=== PATIENT | male | born 1955 | race Caucasian/White ===

== ENCOUNTER 2017-01-11 23:18 | Inpatient (IN) | payer MEDICARE, MEDICAID ==
[~2017-01-11] VITALS: Ht 175.3 cm; Wt 77.3 kg
[~2017-01-11 23:18] MED LIST: ACET-2267 PO; ACET-93 PO; ACET325T38 PO; ASPI81TA57 PO; DIVA125C10 PO; DIVA125T2 PO; DIVA500T7 PO; ESCI10TA PO; ESCI10TA55 PO; GUAI10SY4 PO; LORA10TA76 PO; MELO-195 PO; MELO15TA39 PO; MIRT15TA6 PO; NF-TYLARTH PO; PANT20TA2 PO; PANT20TA3 PO; RISP2TAB PO; RISP3TAB3 PO; RSP2T1 PO; SIMV10TA PO; SIMV10TA3 PO; SIMV20TA3 PO; SIMV40TA PO; SIMV40TA4 PO; TERB250T42 PO; TRAM50TA2 PO
--- OUTSIDE RECORDS SUMMARY | 2017-01-11 23:23 | XMS REPORT ---
Author Author DIXIE Conteh [facility] Address Unknown Care Team Providers Care Crime Scene Photographer Name Role Phone DIXIE Conteh Unavailable PROBLEMS Unknown Problems ALLERGIES Substance Reaction Event Type Date Status penicillian Unknown Non Drug Allergy Apr, Active SOCIAL HISTORY No smoking Hx information available PLAN OF CARE VITAL SIGNS Blood pressure systolic 135 mmHg 2016-04-27 Blood pressure diastolic 85 mmHg 2016-04-27 MEDICATIONS Medication Instructions Dosage Frequency Start Date End Date Duration Status Divalproex Sodium 500 MG Active Protonix 20 MG Orally Once a day 2 tablets 24h Active Risperdal 2 MG Orally Once a day 1 tablet 24h Active Guaifenesin 200 MG/5ML Orally every 4 hrs 5 ml as needed 4h Active Zocor 10 MG Orally Once a day 1 tablet in the evening 24h Active Acetaminophen 500 MG Orally every 6 hrs 2 capsules as needed 6h Active Remeron 15 MG Orally Once a day 1 tablet at bedtime 24h Active Lexapro 10 MG Orally Once a day 1 tablet 24h Active RESULTS No Results PROCEDURES Procedure Date Ordered Related Diagnosis Body Site EXTRAC ERUPTED TOOTH/EXPOSED ROOT Apr 27, 2016 EXTRAC ERUPTED TOOTH/EXPOSED ROOT Apr 27, 2016 IMMUNIZATIONS No Known Immunizations
--- OUTSIDE RECORDS SUMMARY | 2017-01-11 23:24 | XMS REPORT | Continuity of Care Document ---
Author Author [facility] Organization [facility] Address Unknown Phone Unavailable Allergies Active Description Code Type Severity Reaction Onset Reported/Identified Relationship to Patient Clinical Status Yes Penicillins [id number] Drug Allergy Unknown N/A 06/17/2014 Medications Problems Date Dx Coded Attending Type Code Diagnosis Diagnosed By 06/20/2014 Ot 272.4 06/20/2014 Ot 305.1 06/20/2014 Ot 331.0 06/20/2014 Ot 412 06/20/2014 Ot 530.81 06/20/2014 Ot 599.0 06/20/2014 Ot 799.3 06/20/2014 Ot 272.4 06/20/2014 Ot 305.1 06/20/2014 Ot 331.0 06/20/2014 Ot 412 06/20/2014 Ot 530.81 06/20/2014 Ot 599.0 06/20/2014 Ot 799.3 06/21/2014 Ot 272.4 06/21/2014 Ot 305.1 06/21/2014 Ot 331.0 06/21/2014 Ot 412 06/21/2014 Ot 530.81 06/21/2014 Ot 599.0 06/21/2014 Ot 799.3 06/21/2014 Ot 272.4 06/21/2014 Ot 305.1 06/21/2014 Ot 331.0 06/21/2014 Ot 412 06/21/2014 Ot 530.81 06/21/2014 Ot 599.0 06/21/2014 Ot 799.3 06/21/2014 Ot 272.4 06/21/2014 Ot 305.1 06/21/2014 Ot 331.0 06/21/2014 Ot 412 06/21/2014 Ot 530.81 06/21/2014 Ot 599.0 06/21/2014 Ot 799.3 05/28/2015 NEAL FOWLER DO Ot B96.20 05/28/2015 NELA FOWLER DO Ot F32.9 05/28/2015 NEAL FOWLER DO Ot F41.9 05/28/2015 GELLENDER DONEAL Ot G93.89 05/28/2015 GELLENDER DO, NEAL Dukes Ot I69.920 05/28/2015 GELLENDER DONEAL Ot K21.9 05/28/2015 GELLENDER DO, NEAL Dukes Ot N17.9 05/28/2015 GELLENDER DONEAL Ot N39.0 05/28/2015 GELLENDER DO, NEAL Dukes Ot R56.9 05/28/2015 GELLENDER DO, NEAL Dukes Ot Z86.73 Procedures Results Encounters ACCT No. Visit Date/Time Discharge Status Pt. Type Provider Facility Loc./Unit Complaint [id number] 02/08/2014 11:23:41 02/08/2014 23: 59:59 CLS Outpatient JaleelJaziel [id number] 12/06/2013 10:35:04 12/06/2013 23: 59:59 CLS Outpatient Jaleel Jaziel [id number] 11/01/2013 15:07:23 11/01/2013 23: 59:59 CLS Outpatient Jaleel Jaziel [id number] 10/22/2013 16:32:14 10/22/2013 23: 59:59 CLS Outpatient Jaleel Jaziel [id number] 10/15/2013 16:35:33 10/15/2013 23: 59:59 CLS Outpatient Jaleel Jaziel [id number] 10/01/2013 13:49:47 10/01/2013 23: 59:59 CLS Outpatient Kannan Macias [id number] 09/18/2013 11:18:27 09/18/2013 23: 59:59 CLS Outpatient TyJaziel snider [id number] 05/24/2015 12:14:00 2015 13:47:00 DIS Inpatient NEAL FOWLER DO [facility] 4TH [id number] 01/11/2017 23:19:00 ACT Emergency ELIOT AYAKA FREEMAN K [facility] ER FEVER [id number] 06/18/2014 13:29:00 Document Registration
--- OUTSIDE RECORDS SUMMARY | 2017-01-11 23:24 | XMS REPORT ---
Author Author DIXIE Conteh Organization [facility] Address Unknown Care Team Providers Care Prison Psychiatrist Name Role Phone yueMariah DIXIE Unavailable PROBLEMS Unknown Problems ALLERGIES Substance Reaction Event Type Date Status penicillian Unknown Non Drug Allergy Mar, Active SOCIAL HISTORY No smoking Hx information available PLAN OF CARE Activity Details Follow Up 1 Week Reason:te VITAL SIGNS Blood pressure systolic 125 mmHg 2016-04-14 Blood pressure diastolic 80 mmHg 2016-04-14 MEDICATIONS Medication Instructions Dosage Frequency Start Date End Date Duration Status Zocor 10 MG Orally Once a day 1 tablet in the evening 24h Active Risperdal 2 MG Orally Once a day 1 tablet 24h Active Protonix 20 MG Orally Once a day 2 tablets 24h Active Divalproex Sodium 500 MG Active Acetaminophen 500 MG Orally every 6 hrs 2 capsules as needed 6h Active Guaifenesin 200 MG/5ML Orally every 4 hrs 5 ml as needed 4h Active Lexapro 10 MG Orally Once a day 1 tablet 24h Active Remeron 15 MG Orally Once a day 1 tablet at bedtime 24h Active Clindamycin HCl 150 MG Orally three times 1 capsule Mar,Mar 7 days Active RESULTS No Results PROCEDURES Procedure Date Ordered Related Diagnosis Body Site LTD ORAL EVALUATION - PROBLEM FOCUS Apr 14, 2016 INTRAORL-PERIAPICAL 1 FILM [id number] Apr 14, 2016 IMMUNIZATIONS No Known Immunizations
[2017-01-11] MEDS ORDERED: NS IV 1000 ML 1,000 ML IV ONE (23:25)
[2017-01-11 23:38] LABS: BASOPHILS % (AUTO) 0 % (0-10); EOSINOPHILS # (AUTO) 0.1 10^3/uL (0.0-0.3); EOSINOPHILS % (AUTO) 1 % (0-10); LYMPHOCYTES # (AUTO) 1.3 X 10^3 (1.0-4.0); LYMPHOCYTES % (AUTO) 23 % (12-44); MEAN CORPUSCULAR HEMOGLOBIN 29 PG (25-34); MEAN CORPUSCULAR HGB CONC 32 G/DL (32-36); MEAN CORPUSCULAR VOLUME 93 FL (80-99); MEAN PLATELET VOLUME 10.7 FL (7.4-10.4); MONOCYTES # (AUTO) 0.6 X 10^3 (0.0-1.0); MONOCYTES % (AUTO) 11 % (0-12); NEUTROPHILS # (AUTO) 3.6 X 10^3 (1.8-7.8); NEUTROPHILS % (AUTO) 64 % (42-75); PLATELET COUNT 193 10^3/uL (130-400); RED BLOOD COUNT 3.13 10^6/uL (4.35-5.85); RED CELL DISTRIBUTION WIDTH 14.2 % (10.0-14.5); WHITE BLOOD COUNT 5.6 10^3/uL (4.3-11.0)
[2017-01-11 23:49] LABS: INR 1.1 (0.8-1.4); PROTHROMBIN TIME PATIENT 14.5 SEC (12.2-14.7)
--- NOTE | 2017-01-11 23:59 | ED General ---
General Chief Complaint: Fever-Adult/Adol Stated Complaint: FEVER Nursing Triage Note: PT ARRIVED TO ED BY [facility] FROM [facility]. PT IS UNABLE TO COMMUNICATE. EMS STATES THAT THEY WERE CALLED DUE TO PT HAVING A FEVER AND OXYGEN BEING LOW. Nursing Sepsis Screen: No Definite Risk Source of Information: EMS, Senior Living Records, Other (ALL PMH IS FROM OLD RECORDS AND [facility] RECORDS) Exam Limitations: Other (PT IS NON-VERBAL) History of Present Illness Time Seen by Provider: 23:25 Initial Comments PT ARRIVES VIA EMS FROM [facility]--NO REPORT FROM [facility] STAFF EMS STATE THEY WERE CALLED FOR PT WITH UNSPECIFIED FEVER AND LOW O2 SAT OF 72% ON ROOM AIR [facility] STAFF PLACED PT ON O2 AT 3 L/NC AND O2 SAT UP TO 97% WHEN EMS ARRIVED AT THE SCENE, PT HAD O2 SAT OF 97% ON ROOM AIR NO OTHER INFORMATION IS OBTAINABLE, PT IS NON-VERBAL AND HAS DEMENTIA ON ARRIVAL HERE, PT IS 98% ON ROOM AIR TEMP IS 98.0 ON ARRIVAL PT IS HYPOTENSIVE PCP: DR. FOWLER Allergies and Home Medications Allergies Coded Allergies: Penicillins (Verified Allergy, Unknown, 06/17/14) Home Medications Acetaminophen 500 Mg Tablet, 500 MG PO QID PRN for PAIN OR FEVER, (Reported) Divalproex Sodium 500 Mg Tablet., 500 MG PO BID, #60 Prescribed by: LEE ANTUNEZ on 05/28/15 1050 Escitalopram Oxalate 10 Mg Tablet, 10 MG PO HS, (Reported) Guaifenesin/Dextromethorphan 10 Ml Liqd, 10 ML PO Q6H PRN for COUGH, (Reported) Meloxicam 15 Mg Tablet, 15 MG PO DAILY @ 1700, (Reported) Mirtazapine 15 Mg Tablet, 15 MG PO HS, (Reported) Pantoprazole Sodium 20 Mg Tablet., 20 MG PO DAILY, (Reported) Risperidone 3 Mg Tablet, 3 MG PO BID, (Reported) Simvastatin 10 Mg Tablet, 10 MG PO HS, (Reported) Tramadol HCl 50 Mg Tablet, 50 MG PO TID PRN for PAIN, (Reported) Constitutional: other (UNABLE TO OBTAIN) Past Crdznes-Mektdq-Dmdacf Hx Patient Social History Smoking Status: Unknown if Ever Smoked 2nd Hand Smoke Exposure: No Recent Foreign Travel: No Contact w/Someone Who Travel: No Recent Infectious Disease Expo: No Recent Hopitalizations: No Physical Abuse: No Sexual Abuse: No Immunizations Up To Date Date of Influenza Vaccine: Feb 23, 2015 Seasonal Allergies Seasonal Allergies: No Surgeries History of Surgeries: No (UNKNOWN) Respiratory History of Respiratory Disorde: Yes ( pneumonia May 2014) Respiratory Disorders: Pneumonia Cardiovascular History of Cardiac Disorders: Yes Cardiac Disorders: Heart Attack, High Cholesterol Neurological History of Neurological Disord: Yes (ALZHEIMERS) Neurological Disorders: Dementia, Stroke Reproductive System Hx Reproductive Disorders: No Sexually Transmitted Disease: No Genitourinary History of Genitourinary Disor: Yes (INCONTINENT OF URINE--WEARS ADULT DIAPERS) Genitourinary Disorders: UTI-Chronic Gastrointestinal History of Gastrointestinal Di: Yes Gastrointestinal Disorders: Gastroesophageal Reflux Musculoskeletal History of Musculoskeletal Dis: Yes (ARTHOPHATHY; GENERALIZED WEAKNESS, IMPAIRED MOBILITY) Musculoskeletal Disorders: Arthritis, Spasms Endocrine History of Endocrine Disorders: No HEENT History of HEENT Disorders: Yes HEENT Disorders: Dysphagia Cancer History of Cancer: No Psychosocial History of Psychiatric Problem: Yes Behavioral Health Disorders: Anxiety, Depression Suicide Risk Score: 0 Integumentary History of Skin or Integumenta: No Blood Transfusions History of Blood Disorders: No Adverse Reaction to a Blood Tr: No Family Medical History Family Medial History: Unknown Physical Exam Vital Signs Vital Sign - Last 12Hours 01/11/17 01/11/17 23:18 23:50 Temp 98.0 Pulse 87 Resp 20 B/P (MAP) 90/68 Pulse Ox 98 O2 Delivery Room Air O2 Flow Rate 2.00 FiO2 97 Capillary Refill : Less Than 3 Seconds General Appearance: Other (PT LETHARGIC, LAYING WITH EYES CLOSED, MOUTH OPEN, DOES OPEN EYES WITH TACTILE STIMULATION BUT HAS A BLANK STARE AND DOES NOT ACKNOWLEDGE THAT ANYONE IS IN ROOM--STARES STRAIGHT AHEAD, AND DOES NOT TRACK) HEENT: PERRL/EOMI, Other (EDENTULOUS, DRIED FOOD ON LIPS AND GOVEA) Neck: Full Range of Motion Respiratory: Normal Breath Sounds, No Accessory Muscle Use, No Respiratory Distress Cardiovascular: Regular Rate, Rhythm, No Edema, No JVD, No Murmur Gastrointestinal: Normal Bowel Sounds, No Organomegaly, No Pulsatile Mass, Soft Extremity: No Pedal Edema Neurologic/Psychiatric: Other (MENTATION ABOVE; OCCASIONALLY WILL HAVE GENERALIZED TREMORS, ESPECIALLY OF ARMS) Skin: Normal Color, Warm/Dry Focused Exam Evaluation Lactate Level Laboratory Tests 01/11/17 23:41: Lactic Acid Level 1.15 Lactic Acid Level Progress/Results/Core Measures Results/Orders Lab Results Laboratory Tests Test 01/11/17 23:18 01/11/17 23:41 01/11/17 23:53 Range/Units White Blood Count 5.6 4.3-11.0 10^3/uL Red Blood Count 3.13 L 4.35-5.85 10^6/uL Hemoglobin 9.2 L 13.3-17.7 G/DL Hematocrit 29 L 40-54 % Mean Corpuscular Volume 93 80-99 FL Mean Corpuscular Hemoglobin 29 25-34 PG Mean Corpuscular Hemoglobin Concent 32 32-36 G/DL Red Cell Distribution Width 14.2 10.0-14.5 % Platelet Count 193 130-400 10^3/uL Mean Platelet Volume 10.7 H 7.4-10.4 FL Neutrophils (%) (Auto) 64 42-75 % Lymphocytes (%) (Auto) 23 12-44 % Monocytes (%) (Auto) 11 0-12 % Eosinophils (%) (Auto) 1 0-10 % Basophils (%) (Auto) 0 0-10 % Neutrophils # (Auto) 3.6 1.8-7.8 X 10^3 Lymphocytes # (Auto) 1.3 1.0-4.0 X 10^3 Monocytes # (Auto) 0.6 0.0-1.0 X 10^3 Eosinophils # (Auto) 0.1 0.0-0.3 10^3/uL Basophils # (Auto) 0.0 0.0-0.1 10^3/uL Prothrombin Time 14.5 12.2-14.7 SEC INR Comment 1.1 0.8-1.4 Activated Partial Thromboplast Time 30 24-35 SEC Sodium Level 144 135-145 MMOL/L Potassium Level 3.8 3.6-5.0 MMOL/L Chloride Level 109 H 98-107 MMOL/L Carbon Dioxide Level 24 21-32 MMOL/L Anion Gap 11 5-14 MMOL/L Blood Urea Nitrogen 35 H 7-18 MG/DL Creatinine 1.93 H 0.60-1.30 MG/DL Estimat Glomerular Filtration Rate 35 BUN/Creatinine Ratio 18 Glucose Level 95 70-105 MG/DL Calcium Level 9.0 8.5-10.1 MG/DL Magnesium Level 3.1 H 1.8-2.4 MG/DL Total Bilirubin 0.6 0.1-1.0 MG/DL Aspartate Amino Transf (AST/SGOT) 14 5-34 U/L Alanine Aminotransferase (ALT/SGPT) 20 0-55 U/L Alkaline Phosphatase 60 40-136 U/L Total Creatine Kinase 28 L 30-200 U/L Creatine Kinase MB 0.7 <6.6 NG/ML Troponin I < 0.30 <0.30 NG/ML Total Protein 7.7 6.4-8.2 GM/DL Albumin 3.7 3.2-4.5 GM/DL Valproic Acid (Depakene) Level 54.0 50.0-100.0 UG/ML Lactic Acid Level 1.15 0.50-2.00 MMOL/L Urine Color YELLOW Urine Clarity CLOUDY H Urine pH 5 5-9 Urine Specific [place] 1.015 L 1.016-1.022 Urine Protein 2+ H NEGATIVE Urine Glucose (UA) NEGATIVE NEGATIVE Urine Ketones NEGATIVE NEGATIVE Urine Nitrite POSITIVE H NEGATIVE Urine Bilirubin NEGATIVE NEGATIVE Urine Urobilinogen NORMAL NORMAL MG/DL Urine Leukocyte Esterase 3+ H NEGATIVE Urine RBC (Auto) 2+ H NEGATIVE Urine RBC 5-10 H /HPF Urine WBC 50-100 H /HPF Urine Squamous Epithelial Cells NONE /HPF Urine Crystals NONE /LPF Urine Bacteria LARGE H /HPF Urine Casts NONE /LPF Urine Mucus NEGATIVE /LPF Urine Culture Indicated YES My Orders Orders - AYAKA MCCABE DO Saline Lock/Iv-Start (01/11/17 23:25) Ekg Tracing (01/11/17 23:25) O2 (01/11/17 23:25) Monitor-Rhythm Ecg Trace Only (01/11/17 23:25) Basic Metabolic Panel (01/11/17 23:25) Cbc With Automated Diff (01/11/17 23:25) Comprehensive Metabolic Panel (01/11/17 23:25) Creatine Kinase (01/11/17 23:25) Creatine Kinase Mb (01/11/17 23:25) Lactic Acid Analyzer (01/11/17 23:25) Magnesium (01/11/17 23:25) Protime With Inr (01/11/17 23:25) Partial Thromboplastin Time (01/11/17 23:25) Troponin I (01/11/17 23:25) Ua Culture If Indicated (01/11/17 23:25) Blood Culture (01/11/17 23:25) Saline Lock/Iv-Start (01/11/17 23:25) Ns Iv 1000 Ml (Sodium Chloride 0.9%) (01/11/17 23:25) Catheter(Urinary) Insert & Ass 03,15 (01/11/17 23:44) Valproic Acid (01/11/17 23:47) Chest 1 View, Ap/Pa Only (01/12/17 00:01) Urine Culture (01/11/17 23:53) Ceftriaxone Injection (Rocephin Injectio (01/12/17 00:45) Saline Lock/Iv-Start (01/12/17 00:57) Ns Iv 1000 Ml (Sodium Chloride 0.9%) (01/12/17 00:57) Pantoprazole Injection (Protonix Injecti (01/12/17 02:30) Saline Lock/Iv-Start (01/12/17 03:35) Lactated Ringers (Lr 1000 Ml Iv Solution (01/12/17 03:35) Medications Given in ED Current Medications Medications Dose Ordered Sig/Juan Route Start Time Stop Time Status Last Admin Dose Admin Sodium Chloride 1,000 ml @ 0 mls/hr Q0M ONCE IV 01/11/17 23:25 01/11/17 23:28 DC 01/11/17 23:49 1,000 MLS/HR Vital Signs/I&O Vital Sign - Last 12Hours 01/11/17 01/11/17 01/12/17 23:18 23:50 04:20 Temp 98.0 98.0 Pulse 87 56 Resp 20 14 B/P (MAP) 90/68 Pulse Ox 98 97 100 O2 Delivery Room Air Nasal Cannula Room Air O2 Flow Rate 2.00 FiO2 97 Blood Pressure Mean: 75 Progress Note : Progress Note BP UP WITH FLUIDS, BUT CONTINUED TO GO UP AND DOWN DURING ER STAY--SYSTOLIC BP > 100 AT TIME OF ADMIT. O2 SAT 100% ON 2L/NC 0135--PT SLIGHTLY MORE ALERT, OPENS EYES SPONTANEOUSLY, AND DOES ANSWER "NO" WHEN ASKED IF HE WAS IN PAIN OR IF HE FELT SHORT OF BREATH 0215--PT NOW WILL TRACK A LITTLE WHEN I AM TALKING TO HIM. ASKED HIM IF HE WAS UNCOMFORTABLE AND HE SAID "YES" AND I ASKED HOW AND HE SAID "ACID" AND I ASKED IF HE HAD ACID REFLUX AND HE STATED "YES" --WILL GIVE DOSE OF PROTONIX ECG Initial ECG Impression Time: 23:37 Initial ECG Rate: 76 Initial ECG Rhythm: Normal Sinus Initial ECG Comparisson: No Previous ECG Available Diagnostic Imaging Comments CXR--POOR INSPIRATION, BIBASILAR ATELECTASIS, PENDING RADIOLOGIST REVIEW Reviewed: Reviewed by Me Departure Communication (PCP) 0035--SPOKE WITH DR. FOWLER, ACCEPTS PT FOR ADMIT. Impression Impression: Primary Impression: Urinary tract infection Additional Impressions: Hypotension Dehydration Altered mental status Dementia Disposition: ADMITTED INPATIENT Condition: Improved Admissions Decision to Admit Reason: Admit from ER (General) Decision to Admit/Date: Jan 12, 2017 Time/Decision to Admit Time: 00:35 Departure-Patient Inst. Referrals: NEAL FOWLER DO (PCP/Family) Primary Care Physician AYAKA MCCABE DO Jan 11, 2017 23:59
[2017-01-12 00:02] LABS: ALANINE AMINOTRANSFERASE 20 U/L (0-55); ALBUMIN 3.7 GM/DL (3.2-4.5); ANION GAP 11 MMOL/L (5-14); ASPARTATE AMINO TRANSFERASE 14 U/L (5-34); BILIRUBIN,TOTAL 0.6 MG/DL (0.1-1.0); BLOOD UREA NITROGEN 35 MG/DL (7-18); BUN/CREATININE RATIO 18; CARBON DIOXIDE 24 MMOL/L (21-32); CHLORIDE 109 MMOL/L (98-107); CREATINE KINASE 28 U/L (30-200); CREATININE SERUM 1.93 MG/DL (0.60-1.30); GFR ESTIMATED 35; GLUCOSE 95 MG/DL (70-105); MAGNESIUM 3.1 MG/DL (1.8-2.4); POTASSIUM 3.8 MMOL/L (3.6-5.0); SODIUM 144 MMOL/L (135-145); TOTAL PROTEIN 7.7 GM/DL (6.4-8.2)
[2017-01-12 00:10] LABS: BILIRUBIN,URINE NEGATIVE (NEGATIVE); KETONES,URINE NEGATIVE (NEGATIVE); LEUKOCYTE ESTERASE ,URINE 3+ (NEGATIVE); NITRITE,URINE POSITIVE (NEGATIVE); PH,URINE 5 (5-9); PROTEIN,URINE 2+ (NEGATIVE); UROBILINOGEN,URINE NORMAL (NORMAL)
[2017-01-12 00:12] LABS: TROPONIN I < 0.30 NG/ML (<0.30)
[2017-01-12 00:17] LABS: WBC,URINE 50-100 /HPF
[2017-01-12] MEDS ORDERED: cefTRIAXone INJECTION 1,000 MG in NS (IVPB) 50 ML IV ONE (00:45)
[2017-01-12] MEDS ORDERED: NS IV 1000 ML 1,000 ML IV ONE (00:57)
[2017-01-12] MEDS ORDERED: PANTOPRAZOLE 40 MG/10 ML (PROTONIX) VIAL IV ONE (02:30)
[2017-01-12] MEDS ORDERED: NS IV 1000 ML 1,000 ML ONE (03:30)
[2017-01-12] MEDS ORDERED: LACTATED RINGERS 1,000 ML IV ONE (03:35)
[2017-01-12 04:30] VITALS: BP 116/59
[2017-01-12] MEDS ORDERED: D5 1/2 NS 1000 ML IV SOLUTION 1,000 ML IV ONE (04:40)
[2017-01-12 05:00] VITALS: BP 94/52
[2017-01-12] MEDS: D5 1/2 NS 1000 ML IV SOLUTION 1,000 ML IV SCH ×2 (05:02→16:08)
[2017-01-12] MEDS ORDERED: ACETAMINOPHEN 650 MG SUPP (TYLENOL) PR PRN (05:30)
[2017-01-12 06:00] VITALS: BP 105/59
--- NOTE | 2017-01-12 07:13 | Diagnostic Imaging Report ---
INDICATION: Fever and shortness of air. TECHNIQUE: Single view chest 12:04 AM. CORRELATION STUDY: 05/24/2015 FINDINGS: Limited depth of inspiration. Given this, lung bobby demonstrate minimal basilar atelectasis. No definitive infiltrate. Heart size enlarged and mediastinum prominent. Vasculature within normal limits. IMPRESSION: 1. Likely bibasilar areas of atelectasis. No definitive infiltrate. Cardiac enlargement without failure. Dictated by: Dictated on workstation # [id number]
--- NOTE | 2017-01-12 07:32 | History & Physicial ---
History of Present Illness History of Present Illness Reason for visit/HPI patient resident of [facility]. Patient has dementia. Patient sent out to the emergency room due to having a pulse ox of 72, diaphoretic, elevated temperature, and unresponsive. Patient is nonverbal. Patient has UTI. Hypotension. Dehydration. Acute mental status change. Dementia Date of Admission Jan 12, 2017 at 00:35 Time Seen by Provider: 07:15 I consulted on this patient on 01/12/17 07:27 Attending Physician Jesus Manuel Zamorano DO Admitting Physician Jesus Manuel Zamorano DO Consult Allergies and Home Medications Allergies Coded Allergies: Penicillins (Verified Allergy, Unknown, 06/17/14) Home Medications Acetaminophen 500 Mg Tablet, 500 MG PO QID PRN for PAIN OR FEVER, (Reported) Divalproex Sodium 500 Mg Tablet.dr, 500 MG PO BID, #60 Prescribed by: LEE ANTUNEZ on 05/28/15 1050 Escitalopram Oxalate 10 Mg Tablet, 10 MG PO HS, (Reported) Guaifenesin/Dextromethorphan 10 Ml Liqd, 10 ML PO Q6H PRN for COUGH, (Reported) Meloxicam 15 Mg Tablet, 15 MG PO DAILY @ 1700, (Reported) Mirtazapine 15 Mg Tablet, 15 MG PO HS, (Reported) Pantoprazole Sodium 20 Mg Tablet.dr, 20 MG PO DAILY, (Reported) Risperidone 3 Mg Tablet, 3 MG PO BID, (Reported) Simvastatin 10 Mg Tablet, 10 MG PO HS, (Reported) Tramadol HCl 50 Mg Tablet, 50 MG PO TID PRN for PAIN, (Reported) Past Cqctprh-Zobtce-Awqzna Hx Patient Social History Employed/Student: unemployed Alcohol Use: Denies Use Recreational Drug Use: No Smoking Status: Unknown if Ever Smoked 2nd Hand Smoke Exposure: No Physical Abuse Screen: No Sexual Abuse: No Recent Foreign Travel: No Contact w/other who traveled: No Recent Hopitalizations: No Recent Infectious Disease Expo: No Immunizations Up To Date Date of Pneumonia Vaccine: Mar 23, 2016 Date of Influenza Vaccine: Feb 23, 2015 Seasonal Allergies Seasonal Allergies: No Surgeries No (UNKNOWN) Respiratory Yes ( pneumonia May 2014) Currently Using CPAP: No Currently Using BIPAP: No Cardiovascular Yes Heart Attack, High Cholesterol Neurological Yes (ALZHEIMERS) Dementia, Stroke Reproductive System Hx Reproductive Disorders: No Sexually Transmitted Disease: No Genitourinary Yes (INCONTINENT OF URINE--WEARS ADULT DIAPERS) UTI-Chronic Gastrointestinal Yes Gastroesophageal Reflux Musculoskeletal Yes (ARTHOPHATHY; GENERALIZED WEAKNESS, IMPAIRED MOBILITY) Arthritis, Spasms Endocrine History of Endocrine Disorders: No HEENT History of HEENT Disorders: Yes HEENT Disorders: Dysphagia Cancer No Psychosocial History of Psychiatric Problem: Yes Behavioral Health Disorders: Anxiety, Depression Integumentary History of Skin or Integumenta: No Blood Transfusions History of Blood Disorders: No Adverse Reaction to a Blood Tr: No Family Medical History Family Hx: Unknown Constitutional: fever, weakness, other (dementia, nonverbal, hypotensive,) EENTM: no symptoms reported Respiratory: no symptoms reported Cardiovascular: no symptoms reported Gastrointestinal: no symptoms reported Genitourinary: no symptoms reported (dementia, hypotensive, nonverbal, altered mental status) Physical Exam Vital Signs Vital Sign - Last 12Hours 01/11/17 01/11/17 23:18 23:50 Temp 98.0 Pulse 87 Resp 20 B/P (MAP) 90/68 Pulse Ox 98 O2 Delivery Room Air O2 Flow Rate 2.00 FiO2 97 Capillary Refill : Less Than 3 Seconds General Appearance: No Apparent Distress, WD/WN Eyes: Bilateral Eye Normal Inspection HEENT: Normal ENT Inspection Neck: Normal Inspection Respiratory: Normal Breath Sounds, No Accessory Muscle Use, No Respiratory Distress Cardiovascular: Regular Rate, Rhythm Gastrointestinal: Non Tender, Soft Assessment/Plan Assessment and Plan UTI. Hypotension. Dehydration. Acute mental status change. Dementia Problems: Clinical Quality Measures DVT/VTE Risk/Contraindication: Risk Factor Score Per Nursin RFS Level Per Nursing on Admit: 2=Moderate JESUS MANUEL ZAMORANO DO Jan 12, 2017 07:32
--- NOTE | 2017-01-12 07:39 | Pulmonary Consultation ---
History of Present Illness History of Present Illness Date of Consultation 01/12/17 07:33 Time Seen by Provider: 07:33 Date of Admission History of Present Illness 61yo with hx of dementia, nonverbal from [facility] presented to ED secondary to hypoxia, SOB, diaphoresis, fever, and becoming unresponsive.Unable to obtain ROS. Allergies and Home Medications Allergies Coded Allergies: Penicillins (Verified Allergy, Unknown, 06/17/14) Home Medications Acetaminophen 500 Mg Tablet, 500 MG PO Q6H PRN for PAIN-MILD, (Reported) Loperamide HCl 2 Mg Tablet, 2 MG PO UD PRN for DIARRHEA, (Reported) DO NOT EXCEED 6 TABLETS IN 24 HOURS Pantoprazole Sodium 20 Mg Tablet.dr, 20 MG PO DAILY, (Reported) Polyethylene Glycol 3350 17 Gm Powd.pack, 17 GM PO DAILY PRN for CONSTIPATION- 2ND LINE, (Reported) Simvastatin 10 Mg Tablet, 10 MG PO HS, (Reported) Sulfamethoxazole/Trimethoprim 1 Each Tablet, 1 EACH PO BID for 3 Days, #6 Prescribed by: SOFI LAM on 01/14/17 1137 Past Sxfyaiz-Ebkwst-Dvpzfr Hx Patient Social History Alcohol Use: Denies Use Recreational Drug Use: No Smoking Status: Unknown if Ever Smoked 2nd Hand Smoke Exposure: No Recent Foreign Travel: No Contact w/Someone Who Travel: No Recent Infectious Disease Expo: No Recent Hopitalizations: No Physical Abuse: No Sexual Abuse: No Immunizations Up To Date Date of Pneumonia Vaccine: Mar 23, 2016 Date of Influenza Vaccine: Feb 23, 2015 Seasonal Allergies Seasonal Allergies: No Surgeries History of Surgeries: No (UNKNOWN) Respiratory History of Respiratory Disorde: Yes ( pneumonia May 2014) Respiratory Disorders: Pneumonia Currently Using CPAP: No Currently Using BIPAP: No Cardiovascular History of Cardiac Disorders: Yes Cardiac Disorders: Heart Attack, High Cholesterol Neurological History of Neurological Disord: Yes (ALZHEIMERS) Neurological Disorders: Dementia, Stroke Reproductive System Hx Reproductive Disorders: No Sexually Transmitted Disease: No Genitourinary History of Genitourinary Disor: Yes (INCONTINENT OF URINE--WEARS ADULT DIAPERS) Genitourinary Disorders: UTI-Chronic Gastrointestinal History of Gastrointestinal Di: Yes Gastrointestinal Disorders: Gastroesophageal Reflux Musculoskeletal History of Musculoskeletal Dis: Yes (ARTHOPHATHY; GENERALIZED WEAKNESS, IMPAIRED MOBILITY) Musculoskeletal Disorders: Arthritis, Spasms Endocrine History of Endocrine Disorders: No HEENT History of HEENT Disorders: Yes HEENT Disorders: Dysphagia Cancer History of Cancer: No Psychosocial History of Psychiatric Problem: Yes Behavioral Health Disorders: Anxiety, Depression Suicide Risk Score: 0 Integumentary History of Skin or Integumenta: No Blood Transfusions History of Blood Disorders: No Adverse Reaction to a Blood Tr: No Family Medical History Family Medial History: Unknown Review of Systems Time Seen by Provider: 09:13 Exam Exam Vital Signs Date Time Temp Pulse Resp B/P (MAP) Pulse Ox O2 Delivery O2 Flow Rate FiO2 01/12/17 07:20 Nasal Cannula 2.00 01/12/17 05:02 56 01/12/17 04:32 100 Nasal Cannula 2.00 01/12/17 04:30 98.5 60 22 116/59 100 Nasal Cannula 2.00 01/12/17 04:20 98.0 56 14 100 Room Air 01/11/17 23:50 97 Nasal Cannula 2.00 97 01/11/17 23:18 98.0 87 20 90/68 98 Room Air General Appearance: No Apparent Distress, WD/WN HEENT: Normal ENT Inspection Neck: Normal Inspection Respiratory: Normal Breath Sounds, No Accessory Muscle Use, No Respiratory Distress Cardiovascular: Regular Rate, Rhythm Capillary Refill: Less Than 3 Seconds Extremity: No Pedal Edema Neurologic/Psychiatric: Other (MENTATION ABOVE; OCCASIONALLY WILL HAVE GENERALIZED TREMORS, ESPECIALLY OF ARMS) Skin: Normal Color, Warm/Dry Results Lab Laboratory Tests 01/11/17 23:18 Assessment/Plan Assessment/Plan Hypotension - resolved with IVF -IVF UTI -Continue Rocephin Chronic dementia Will transfer to 4th floor. 254 Clinical Quality Measures DVT/VTE Risk/Contraindication: Risk Factor Score Per Nursin RFS Level Per Nursing on Admit: 2=Moderate SANG OSORIO DO Jan 12, 2017 07:39
[2017-01-12 07:51] VITALS: BP 90/45
[2017-01-12] MEDS: ENOXAPARIN 40 MG/0.4 ML (LOVENOX) SYR SC SCH (08:50)
[2017-01-12 08:52] LABS: BASOPHILS % (AUTO) 0 % (0-10); EOSINOPHILS % (AUTO) 1 % (0-10); LYMPHOCYTES # (AUTO) 0.9 X 10^3 (1.0-4.0); LYMPHOCYTES % (AUTO) 19 % (12-44); MEAN CORPUSCULAR HEMOGLOBIN 30 PG (25-34); MEAN CORPUSCULAR HGB CONC 31 G/DL (32-36); MEAN CORPUSCULAR VOLUME 96 FL (80-99); MEAN PLATELET VOLUME 10.2 FL (7.4-10.4); MONOCYTES # (AUTO) 0.4 X 10^3 (0.0-1.0); MONOCYTES % (AUTO) 10 % (0-12); NEUTROPHILS # (AUTO) 3.2 X 10^3 (1.8-7.8); NEUTROPHILS % (AUTO) 70 % (42-75); PLATELET COUNT 163 10^3/uL (130-400); RED BLOOD COUNT 2.75 10^6/uL (4.35-5.85); RED CELL DISTRIBUTION WIDTH 14.1 % (10.0-14.5); WHITE BLOOD COUNT 4.5 10^3/uL (4.3-11.0)
[2017-01-12 09:01] LABS: CALCIUM 8.1 MG/DL (8.5-10.1); CREATININE SERUM 1.62 MG/DL (0.60-1.30); POTASSIUM 3.6 MMOL/L (3.6-5.0)
[2017-01-12] MEDS ORDERED: RISP2TAB3 PO (09:06)
[2017-01-12] MEDS ORDERED: DIPH25TA65 PO (09:06)
[2017-01-12] MEDS ORDERED: LOPE-134 PO (09:06)
[2017-01-12] MEDS ORDERED: DIVA500T PO (09:06)
[2017-01-12] MEDS ORDERED: MIRT30TA6 PO (09:06)
[2017-01-12] MEDS ORDERED: POLY17PO6 PO (09:06)
[2017-01-12 16:52] VITALS: BP 117/65
[2017-01-12 20:00] VITALS: BP 133/62
[2017-01-12] MEDS ORDERED: DIVALPROEX 500 MG DELAYED RELEASE (DEPAKOTE) TAB PO SCH (21:00)
[2017-01-12] MEDS: cefTRIAXone 1 GM/NS 50 ML IVPB IV SCH ×2 (22:02)
[2017-01-13] VITALS (10 sets, daily range): BP systolic 98–149; BP diastolic 56–88
[2017-01-13] MEDS: D5 1/2 NS 1000 ML IV SOLUTION 1,000 ML IV SCH (02:47)
[2017-01-13 05:57] LABS: BASOPHILS % (AUTO) 0 % (0-10); EOSINOPHILS # (AUTO) 0.1 10^3/uL (0.0-0.3); EOSINOPHILS % (AUTO) 2 % (0-10); LYMPHOCYTES # (AUTO) 1.2 X 10^3 (1.0-4.0); LYMPHOCYTES % (AUTO) 26 % (12-44); MEAN CORPUSCULAR HEMOGLOBIN 29 PG (25-34); MEAN CORPUSCULAR HGB CONC 31 G/DL (32-36); MEAN CORPUSCULAR VOLUME 94 FL (80-99); MEAN PLATELET VOLUME 10.4 FL (7.4-10.4); MONOCYTES # (AUTO) 0.5 X 10^3 (0.0-1.0); MONOCYTES % (AUTO) 12 % (0-12); NEUTROPHILS # (AUTO) 2.7 X 10^3 (1.8-7.8); NEUTROPHILS % (AUTO) 60 % (42-75); PLATELET COUNT 180 10^3/uL (130-400); RED BLOOD COUNT 2.45 10^6/uL (4.35-5.85); RED CELL DISTRIBUTION WIDTH 13.9 % (10.0-14.5); WHITE BLOOD COUNT 4.5 10^3/uL (4.3-11.0)
[2017-01-13] MEDS: ENOXAPARIN 40 MG/0.4 ML (LOVENOX) SYR SC SCH (06:20)
[2017-01-13 06:33] LABS: ALBUMIN 2.9 GM/DL (3.2-4.5); BILIRUBIN,TOTAL 0.4 MG/DL (0.1-1.0); CALCIUM 7.8 MG/DL (8.5-10.1); CREATININE SERUM 1.37 MG/DL (0.60-1.30); POTASSIUM 3.5 MMOL/L (3.6-5.0); TOTAL PROTEIN 5.9 GM/DL (6.4-8.2)
--- NOTE | 2017-01-13 06:59 | Pulmonary Progress Note ---
Subjective Time Seen by Provider: :17 Exam Exam Vital Signs Date Time Temp Pulse Resp B/P (MAP) Pulse Ox O2 Delivery O2 Flow Rate FiO2 01/13/17 04:00 98.2 55 17 120/66 91 Room Air 01/13/17 01:00 60 01/13/17 00:00 98.6 72 19 112/62 97 Room Air 01/12/17 20:15 97 Nasal Cannula 2.00 97 01/12/17 20:00 98.8 61 20 133/62 100 Nasal Cannula 2.00 01/12/17 19:00 76 01/12/17 16:52 97.5 56 20 117/65 99 Nasal Cannula 2.00 01/12/17 13:19 50 01/12/17 09:25 99 Nasal Cannula 2.00 97 01/12/17 07:57 99 Nasal Cannula 2.00 01/12/17 07:51 97.3 52 20 90/45 99 Nasal Cannula 2.00 01/12/17 07:51 99 Nasal Cannula 2.00 01/12/17 07:20 Nasal Cannula 2.00 01/12/17 07:00 53 General Appearance: No Apparent Distress, WD/WN HEENT: Normal ENT Inspection Neck: Normal Inspection Respiratory: Normal Breath Sounds, No Accessory Muscle Use, No Respiratory Distress Cardiovascular: Regular Rate, Rhythm Capillary Refill: Less Than 3 Seconds Extremity: No Pedal Edema Neurologic/Psychiatric: Other (MENTATION ABOVE; OCCASIONALLY WILL HAVE GENERALIZED TREMORS, ESPECIALLY OF ARMS) Skin: Normal Color, Warm/Dry Results Lab Laboratory Tests 01/11/17 23:18 01/12/17 08:40 01/13/17 05:22 Assessment/Plan Assessment/Plan UTI -Continue Rocephin Chronic dementia -- nonverbal Atelectasis -pt is only requiring RA NO pulmonary complications noted. I am going to sign off. please let me know if you have any questions or concerns. 232 Clinical Quality Measures DVT/VTE Risk/Contraindication: Risk Factor Score Per Nursin RFS Level Per Nursing on Admit: 2=Moderate SANG OSORIO DO Jan 13, 2017 06:59
--- NOTE | 2017-01-13 08:08 | Progress Note (SOAP) ---
Subjective Time Seen by Provider: 08:05 Subjective/Events-last exam patient looking better today. Patient opens his eyes. GFR 53 better. Potassium 3.5 . Hemoglobin 7.3. UTI Hypotension. Dehydration. Renal insufficiency. Dementia. Objective Exam Vital Signs Date Time Temp Pulse Resp B/P (MAP) Pulse Ox O2 Delivery O2 Flow Rate FiO2 01/13/17 04:00 98.2 55 17 120/66 91 Room Air 01/13/17 01:00 60 01/13/17 00:00 98.6 72 19 112/62 97 Room Air 01/12/17 20:15 97 Nasal Cannula 2.00 97 01/12/17 20:00 98.8 61 20 133/62 100 Nasal Cannula 2.00 01/12/17 19:00 76 01/12/17 16:52 97.5 56 20 117/65 99 Nasal Cannula 2.00 01/12/17 13:19 50 01/12/17 09:25 99 Nasal Cannula 2.00 97 Capillary Refill : Less Than 3 Seconds General Appearance: No Apparent Distress, WD/WN Results Lab Laboratory Tests 01/12/17 08:40 01/13/17 05:22 Laboratory Tests 01/12/17 08:40: White Blood Count 4.5, Red Blood Count 2.75L, Hemoglobin 8.1L, Hematocrit 26L, Mean Corpuscular Volume 96, Mean Corpuscular Hemoglobin 30, Mean Corpuscular Hemoglobin Concent 31L, Red Cell Distribution Width 14.1, Platelet Count 163, Mean Platelet Volume 10.2, Neutrophils (%) (Auto) 70, Lymphocytes (%) (Auto) 19 , Monocytes (%) (Auto) 10, Eosinophils (%) (Auto) 1, Basophils (%) (Auto) 0, Neutrophils # (Auto) 3.2, Lymphocytes # (Auto) 0.9L, Monocytes # (Auto) 0.4, Eosinophils # (Auto) 0.0, Basophils # (Auto) 0.0, Sodium Level 144, Potassium Level 3.6, Chloride Level 112H, Carbon Dioxide Level 24, Anion Gap 8, Blood Urea Nitrogen 27H, Creatinine 1.62H, Estimat Glomerular Filtration Rate 43, BUN/ Creatinine Ratio 17, Glucose Level 120H, Calcium Level 8.1L 01/13/17 05:22: White Blood Count 4.5, Red Blood Count 2.45L, Hemoglobin 7.2L, Hematocrit 23L, Mean Corpuscular Volume 94, Mean Corpuscular Hemoglobin 29, Mean Corpuscular Hemoglobin Concent 31L, Red Cell Distribution Width 13.9, Platelet Count 180, Mean Platelet Volume 10.4, Neutrophils (%) (Auto) 60, Lymphocytes (%) (Auto) 26 , Monocytes (%) (Auto) 12, Eosinophils (%) (Auto) 2, Basophils (%) (Auto) 0, Neutrophils # (Auto) 2.7, Lymphocytes # (Auto) 1.2, Monocytes # (Auto) 0.5, Eosinophils # (Auto) 0.1, Basophils # (Auto) 0.0, Sodium Level 138, Potassium Level 3.5L, Chloride Level 108H, Carbon Dioxide Level 22, Anion Gap 8, Blood Urea Nitrogen 20H, Creatinine 1.37H, Estimat Glomerular Filtration Rate 53, BUN/ Creatinine Ratio 15, Glucose Level 88, Calcium Level 7.8L, Total Bilirubin 0.4, Aspartate Amino Transf (AST/SGOT) 11, Alanine Aminotransferase (ALT/SGPT) 13, Alkaline Phosphatase 45, Total Protein 5.9L, Albumin 2.9L Microbiology 01/12/17 Blood Culture - Preliminary, Resulted No growth 01/11/17 Urine Culture - Preliminary, Resulted Gram Negative Isra Assessment/Plan Assessment/Plan Assess & Plan/Chief Complaint UTI. Hypotension. Dehydration. Anemia. Renal insufficiency. Dementia. Patient opening his eyes today Patient not hypoxic. Blood pressure better Clinical Quality Measures DVT/VTE Risk/Contraindication: Risk Factor Score Per Nursin RFS Level Per Nursing on Admit: 2=Moderate NEAL FOWLER DO Jan 13, 2017 08:08
[2017-01-13] MEDS ORDERED: NS IV 500 ML 500 ML IV SCH (08:14)
[2017-01-13] MEDS ORDERED: ACETAMINOPHEN 500 MG TAB (TYLENOL) PO PRN (08:15)
[2017-01-13] MEDS ORDERED: KCL 10 MEQ TAB (MICRO K) PO NR (08:15)
[2017-01-13] MEDS ORDERED: ACETAMINOPHEN 325 MG TABLET/CAPLET (TYLENOL) PO ONE (08:15)
[2017-01-13] MEDS ORDERED: POLYETHYLENE GLYCOL 17 GM (MIRALAX) PACK PO PRN (08:15)
[2017-01-13] MEDS ORDERED: diphenhydrAMINE 25 MG TAB (BENADRYL) PO ONE (08:15)
[2017-01-13] MEDS: PANTOPRAZOLE 20 MG TABLET (PROTONIX) PO SCH (09:55)
[2017-01-13] MEDS: DIVALPROEX 500 MG DELAYED RELEASE (DEPAKOTE) TAB PO SCH ×2 (09:55→21:07)
[2017-01-13] MEDS: risperiDONE 2 MG (RisperDAL) TAB PO SCH ×2 (09:55→21:07)
[2017-01-13 12:17] LABS: BILIRUBIN,URINE NEGATIVE (NEGATIVE); KETONES,URINE NEGATIVE (NEGATIVE); LEUKOCYTE ESTERASE ,URINE 3+ (NEGATIVE); NITRITE,URINE NEGATIVE (NEGATIVE); PH,URINE 6.5 (5-9); PROTEIN,URINE 2+ (NEGATIVE); UROBILINOGEN,URINE NORMAL (NORMAL)
[2017-01-13 12:27] LABS: WBC,URINE 25-50 /HPF
[2017-01-13] MEDS ORDERED: SIMvastatin 10 MG (ZOCOR) TAB PO SCH (21:00)
[2017-01-13] MEDS: cefTRIAXone 1 GM/NS 50 ML IVPB IV SCH ×2 (21:07)
[2017-01-14 02:00] VITALS: BP 137/74
[2017-01-14] MEDS: D5 1/2 NS 1000 ML IV SOLUTION 1,000 ML IV SCH (03:35)
[2017-01-14 06:46] LABS: MEAN PLATELET VOLUME 10.9 FL (7.4-10.4); RED BLOOD COUNT 3.29 10^6/uL (4.35-5.85); RED CELL DISTRIBUTION WIDTH 14.1 % (10.0-14.5); WHITE BLOOD COUNT 4.5 10^3/uL (4.3-11.0)
[2017-01-14 07:01] LABS: CALCIUM 8.3 MG/DL (8.5-10.1); CREATININE SERUM 1.39 MG/DL (0.60-1.30); POTASSIUM 3.5 MMOL/L (3.6-5.0)
--- NOTE | 2017-01-14 07:51 | Progress Note (SOAP) ---
Subjective Time Seen by Provider: 07:45 Subjective/Events-last exam patient lethargic this morning. Hemoglobin and hematocrit stable. UTI due to Escherichia coli. Dementia. Patient not hypoxic. Patient does not have any hypotension. Patient not dehydrated.. Renal insufficiency better. Patient doing much better. Would like to discharge patient today Objective Exam Vital Signs Date Time Temp Pulse Resp B/P (MAP) Pulse Ox O2 Delivery O2 Flow Rate FiO2 01/14/17 02:00 98.1 67 22 137/74 96 Room Air 01/14/17 00:52 62 01/13/17 21:00 Room Air 01/13/17 19:49 85 01/13/17 16:53 97.3 58 22 149/88 97 Room Air 01/13/17 15:57 97.1 52 16 127/60 97 Room Air 01/13/17 13:52 97.5 59 13 101/60 100 Room Air 01/13/17 13:45 97.7 54 13 98/57 100 01/13/17 13:37 97.8 50 13 102/59 99 Room Air 01/13/17 13:32 97.7 54 16 121/56 98 Room Air 01/13/17 13:30 48 01/13/17 13:15 97.5 56 16 118/64 97 01/13/17 08:20 Nasal Cannula 2.00 01/13/17 08:00 97.3 52 22 99/70 92 Room Air Capillary Refill : Less Than 3 Seconds General Appearance: No Apparent Distress, WD/WN, Other (lethargic) HEENT: Normal ENT Inspection Neck: Normal Inspection Respiratory: Lungs Clear, No Accessory Muscle Use, No Respiratory Distress Cardiovascular: Regular Rate, Rhythm, No Murmur Gastrointestinal: non tender, soft Results Lab Laboratory Tests 01/14/17 05:29 Laboratory Tests 01/13/17 10:05: Urine Color YELLOW, Urine Clarity SLIGHTLY CLOUDY, Urine pH 6.5, Urine Specific [place] 1.010L, Urine Protein 2+H, Urine Glucose (UA) NEGATIVE, Urine Ketones NEGATIVE, Urine Nitrite NEGATIVE, Urine Bilirubin NEGATIVE, Urine Urobilinogen NORMAL, Urine Leukocyte Esterase 3+H, Urine RBC (Auto) 4+H, Urine RBC 25-50H, Urine WBC 25-50H, Urine Crystals NONE, Urine Bacteria TRACE, Urine Casts NONE, Urine Mucus NEGATIVE, Urine Culture Indicated YES 01/14/17 05:29: White Blood Count 4.5, Red Blood Count 3.29L, Hemoglobin 9.5#L, Hematocrit 30L, Mean Corpuscular Volume 92, Mean Corpuscular Hemoglobin 29, Mean Corpuscular Hemoglobin Concent 32, Red Cell Distribution Width 14.1, Platelet Count 182, Mean Platelet Volume 10.9H, Sodium Level 139, Potassium Level 3.5L, Chloride Level 108H, Carbon Dioxide Level 23, Anion Gap 8, Blood Urea Nitrogen 14, Creatinine 1.39H, Estimat Glomerular Filtration Rate 52, BUN/Creatinine Ratio 10 , Glucose Level 81, Calcium Level 8.3L Microbiology 01/12/17 Blood Culture - Preliminary, Resulted No growth 01/11/17 Urine Culture - Final, Complete Escherichia Coli Radiology NAME: DARREN LOPEZ [facility] REC#: [id number] PT STATUS: ADM IN : 1955 PHYSICIAN: AYAKA MCCABE DO ADMIT DATE: 01/12/17 Signed Date of Exam: 01/12/17 CHEST 1 VIEW, AP/PA ONLY INDICATION: Fever and shortness of air. TECHNIQUE: Single view chest 12:04 AM. CORRELATION STUDY: 05/24/2015 FINDINGS: Limited depth of inspiration. Given this, lung bobby demonstrate minimal basilar atelectasis. No definitive infiltrate. Heart size enlarged and mediastinum prominent. Vasculature within normal limits. IMPRESSION: 1. Likely bibasilar areas of atelectasis. No definitive infiltrate. Cardiac enlargement without failure. Dictated by: Dictated on workstation # [id number] Dict: 01/12/17 0708 Trans: 01/12/17 1154 Interpreted by: CRISTEL SALINAS DO Electronically signed by: CRISTEL SALINAS DO 01/12/17 1154 Assessment/Plan Assessment/Plan Assess & Plan/Chief Complaint UTI. Hypotension. Dehydration. Anemia. Renal insufficiency. Dementia. Patient opening his eyes today Patient not hypoxic. Blood pressure better. . 01/14/17. UTI due to Escherichia coli. Hypotension resolved. Dehydration resolved. Renal insufficiency better. Dementia. Patient not hypoxia. Blood pressure better. Patient lethargic probably due to medication . With like to discharge today Clinical Quality Measures DVT/VTE Risk/Contraindication: Risk Factor Score Per Nursin RFS Level Per Nursing on Admit: 2=Moderate NEAL FOWLER DO Jan 14, 2017 07:51
--- NOTE | 2017-01-14 07:54 | Discharge Inst-Skilled Nursing ---
Discharge Inst-Skilled NF Patient Instructions Patient Problems: Septra double strength number 6 one twice a day Consult/Follow Up/Orders Follow Up Appt.: one week Skilled NF Admit to: [facility] Certification (SNF) I certify that SNF services are required to be given on an inpatient basis because of the above named patient's need for [facility] care on a continuing basis for the conditions(s) for which he/she was receiving inpatient hospital services prior to his/her transfer to the SNF. Discharge Diet: Other Diet (follow same diet at residential as previously) New & Resume Previous Orders Jesus Manuel Fowler Jan 14, 2017 07:54 JESUS MANUEL FOWLER DO Jan 14, 2017 07:54
[2017-01-14 08:22] VITALS: BP 114/72
[2017-01-14] MEDS: PANTOPRAZOLE 20 MG TABLET (PROTONIX) PO SCH (09:53)
[2017-01-14] MEDS ORDERED: SULF1TAB35 PO (11:37)
[2017-01-14 12:37] VITALS: BP 130/71
[2017-01-14] MEDS ORDERED: TRIM/SULFAMETH 160/800 (SEPTRA DS) TAB PO SCH (17:00)
--- NOTE | 2017-01-18 07:23 | Discharge Summary ---
Diagnosis/Chief Complaint Date of Admission Jan 12, 2017 at 00:35 Date of Discharge Jan 14, 2017 at 16:55 Discharge Date: Jan 14, 2017 Admission Diagnosis Admission Diagnosis UTI. Hypotension. Dehydration. Acute mental status change. Dementia Discharge Diagnosis hypoxemia. Unresponsive. Short of breath. Acute mental status change. UTI due to Escherichia coli. Dementia. Renal insufficiency. Anemia. Reason [facility] has [facility]. Patient sent out to the emergency room due to having a pulse ox of 72, diaphoretic, elevated temperature, and unresponsive. Patient is nonverbal. Patient has UTI. Hypotension. Dehydration. Acute mental status change. Dementia Discharge Summary Consultations pulmonary consult Discharge Physical Examination Allergies: Coded Allergies: Penicillins (Verified Allergy, Unknown, 06/17/14) Vitals & I&Os Vital Signs Date Time Temp Pulse Resp B/P (MAP) Pulse Ox O2 Delivery O2 Flow Rate FiO2 01/14/17 16:56 01/14/17 13:00 65 01/14/17 12:37 98.0 22 97 Room Air 01/13/17 08:20 2.00 01/12/17 20:15 97 Hospital Course patient in hospital did improve. Patient nonverbal area Patient transferred back to [facility] Labs (last 24 hrs) Laboratory Tests 01/11/17 23:18: White Blood Count 5.6, Red Blood Count 3.13L, Hemoglobin 9.2L, Hematocrit 29L, Mean Corpuscular Volume 93, Mean Corpuscular Hemoglobin 29, Mean Corpuscular Hemoglobin Concent 32, Red Cell Distribution Width 14.2, Platelet Count 193, Mean Platelet Volume 10.7H, Neutrophils (%) (Auto) 64, Lymphocytes (%) (Auto) 23 , Monocytes (%) (Auto) 11, Eosinophils (%) (Auto) 1, Basophils (%) (Auto) 0, Neutrophils # (Auto) 3.6, Lymphocytes # (Auto) 1.3, Monocytes # (Auto) 0.6, Eosinophils # (Auto) 0.1, Basophils # (Auto) 0.0, Prothrombin Time 14.5, INR Comment 1.1, Activated Partial Thromboplast Time 30, Sodium Level 144, Potassium Level 3.8, Chloride Level 109H, Carbon Dioxide Level 24, Anion Gap 11 , Blood Urea Nitrogen 35H, Creatinine 1.93H, Estimat Glomerular Filtration Rate 35, BUN/Creatinine Ratio 18, Glucose Level 95, Calcium Level 9.0, Magnesium Level 3.1H, Total Bilirubin 0.6, Aspartate Amino Transf (AST/SGOT) 14, Alanine Aminotransferase (ALT/SGPT) 20, Alkaline Phosphatase 60, Total Creatine Kinase 28L, Creatine Kinase MB 0.7, Troponin I < 0.30, Total Protein 7.7, Albumin 3.7, Valproic Acid (Depakene) Level 54.0 01/11/17 23:41: Lactic Acid Level 1.15 01/11/17 23:53: Urine Color YELLOW, Urine Clarity CLOUDYH, Urine pH 5, Urine Specific [place] 1.015L, Urine Protein 2+H, Urine Glucose (UA) NEGATIVE, Urine Ketones NEGATIVE, Urine Nitrite POSITIVEH, Urine Bilirubin NEGATIVE, Urine Urobilinogen NORMAL, Urine Leukocyte Esterase 3+H, Urine RBC (Auto) 2+H, Urine RBC 5-10H, Urine WBC 50-100H, Urine Squamous Epithelial Cells NONE, Urine Crystals NONE, Urine Bacteria LARGEH, Urine Casts NONE, Urine Mucus NEGATIVE, Urine Culture Indicated YES 01/12/17 08:40: White Blood Count 4.5, Red Blood Count 2.75L, Hemoglobin 8.1L, Hematocrit 26L, Mean Corpuscular Volume 96, Mean Corpuscular Hemoglobin 30, Mean Corpuscular Hemoglobin Concent 31L, Red Cell Distribution Width 14.1, Platelet Count 163, Mean Platelet Volume 10.2, Neutrophils (%) (Auto) 70, Lymphocytes (%) (Auto) 19 , Monocytes (%) (Auto) 10, Eosinophils (%) (Auto) 1, Basophils (%) (Auto) 0, Neutrophils # (Auto) 3.2, Lymphocytes # (Auto) 0.9L, Monocytes # (Auto) 0.4, Eosinophils # (Auto) 0.0, Basophils # (Auto) 0.0, Sodium Level 144, Potassium Level 3.6, Chloride Level 112H, Carbon Dioxide Level 24, Anion Gap 8, Blood Urea Nitrogen 27H, Creatinine 1.62H, Estimat Glomerular Filtration Rate 43, BUN/ Creatinine Ratio 17, Glucose Level 120H, Calcium Level 8.1L 01/13/17 05:22: White Blood Count 4.5, Red Blood Count 2.45L, Hemoglobin 7.2L, Hematocrit 23L, Mean Corpuscular Volume 94, Mean Corpuscular Hemoglobin 29, Mean Corpuscular Hemoglobin Concent 31L, Red Cell Distribution Width 13.9, Platelet Count 180, Mean Platelet Volume 10.4, Neutrophils (%) (Auto) 60, Lymphocytes (%) (Auto) 26 , Monocytes (%) (Auto) 12, Eosinophils (%) (Auto) 2, Basophils (%) (Auto) 0, Neutrophils # (Auto) 2.7, Lymphocytes # (Auto) 1.2, Monocytes # (Auto) 0.5, Eosinophils # (Auto) 0.1, Basophils # (Auto) 0.0, Sodium Level 138, Potassium Level 3.5L, Chloride Level 108H, Carbon Dioxide Level 22, Anion Gap 8, Blood Urea Nitrogen 20H, Creatinine 1.37H, Estimat Glomerular Filtration Rate 53, BUN/ Creatinine Ratio 15, Glucose Level 88, Calcium Level 7.8L, Total Bilirubin 0.4, Aspartate Amino Transf (AST/SGOT) 11, Alanine Aminotransferase (ALT/SGPT) 13, Alkaline Phosphatase 45, Total Protein 5.9L, Albumin 2.9L 01/13/17 10:05: Urine Color YELLOW, Urine Clarity SLIGHTLY CLOUDY, Urine pH 6.5, Urine Specific [place] 1.010L, Urine Protein 2+H, Urine Glucose (UA) NEGATIVE, Urine Ketones NEGATIVE, Urine Nitrite NEGATIVE, Urine Bilirubin NEGATIVE, Urine Urobilinogen NORMAL, Urine Leukocyte Esterase 3+H, Urine RBC (Auto) 4+H, Urine RBC 25-50H, Urine WBC 25-50H, Urine Crystals NONE, Urine Bacteria TRACE, Urine Casts NONE, Urine Mucus NEGATIVE, Urine Culture Indicated YES 01/14/17 05:29: White Blood Count 4.5, Red Blood Count 3.29L, Hemoglobin 9.5#L, Hematocrit 30L, Mean Corpuscular Volume 92, Mean Corpuscular Hemoglobin 29, Mean Corpuscular Hemoglobin Concent 32, Red Cell Distribution Width 14.1, Platelet Count 182, Mean Platelet Volume 10.9H, Sodium Level 139, Potassium Level 3.5L, Chloride Level 108H, Carbon Dioxide Level 23, Anion Gap 8, Blood Urea Nitrogen 14, Creatinine 1.39H, Estimat Glomerular Filtration Rate 52, BUN/Creatinine Ratio 10 , Glucose Level 81, Calcium Level 8.3L 01/14/17 12:05: Lab Scanned Report Transfusion Reaction Form Microbiology 01/12/17 Blood Culture - Final, Complete No growth 01/13/17 Urine Culture - Final, Complete Laboratory Tests 01/11/17 23:18 01/12/17 08:40 01/13/17 05:22 01/14/17 05:29 Pending Labs Microbiology Date/Time Source Procedure Growth Status 01/12/17 00:02 Peripheral Rt Ac Blood Culture - Final No growth Complete 01/11/17 23:41 Peripheral Lt Ac Blood Culture - Final Staph, Coag Neg ([employer]) Complete 01/13/17 10:05 Urine Clean Catch Urine Culture - Final Complete 01/11/17 23:53 Urine Clean Catch Urine Culture - Final Escherichia Coli Complete Laboratory Tests 01/11/17 23:18: White Blood Count 5.6, Red Blood Count 3.13, Hemoglobin 9.2, Hematocrit 29, Mean Corpuscular Volume 93, Mean Corpuscular Hemoglobin 29, Mean Corpuscular Hemoglobin Concent 32, Red Cell Distribution Width 14.2, Platelet Count 193, Mean Platelet Volume 10.7, Neutrophils (%) (Auto) 64, Lymphocytes (%) (Auto) 23 , Monocytes (%) (Auto) 11, Eosinophils (%) (Auto) 1, Basophils (%) (Auto) 0, Neutrophils # (Auto) 3.6, Lymphocytes # (Auto) 1.3, Monocytes # (Auto) 0.6, Eosinophils # (Auto) 0.1, Basophils # (Auto) 0.0, Prothrombin Time 14.5, INR Comment 1.1, Activated Partial Thromboplast Time 30, Sodium Level 144, Potassium Level 3.8, Chloride Level 109, Carbon Dioxide Level 24, Anion Gap 11, Blood Urea Nitrogen 35, Creatinine 1.93, Estimat Glomerular Filtration Rate 35, BUN/Creatinine Ratio 18, Glucose Level 95, Calcium Level 9.0, Magnesium Level 3.1, Total Bilirubin 0.6, Aspartate Amino Transf (AST/SGOT) 14, Alanine Aminotransferase (ALT/SGPT) 20, Alkaline Phosphatase 60, Total Creatine Kinase 28, Creatine Kinase MB 0.7, Troponin I < 0.30, Total Protein 7.7, Albumin 3.7, Valproic Acid (Depakene) Level 54.0 01/11/17 23:41: Lactic Acid Level 1.15 01/11/17 23:53: Urine Color YELLOW, Urine Clarity CLOUDY, Urine pH 5, Urine Specific [place] 1.015, Urine Protein 2+, Urine Glucose (UA) NEGATIVE, Urine Ketones NEGATIVE, Urine Nitrite POSITIVE, Urine Bilirubin NEGATIVE, Urine Urobilinogen NORMAL, Urine Leukocyte Esterase 3+, Urine RBC (Auto) 2+, Urine RBC 5-10, Urine WBC 50- 100, Urine Squamous Epithelial Cells NONE, Urine Crystals NONE, Urine Bacteria LARGE, Urine Casts NONE, Urine Mucus NEGATIVE, Urine Culture Indicated YES 01/12/17 08:40: White Blood Count 4.5, Red Blood Count 2.75, Hemoglobin 8.1, Hematocrit 26, Mean Corpuscular Volume 96, Mean Corpuscular Hemoglobin 30, Mean Corpuscular Hemoglobin Concent 31, Red Cell Distribution Width 14.1, Platelet Count 163, Mean Platelet Volume 10.2, Neutrophils (%) (Auto) 70, Lymphocytes (%) (Auto) 19 , Monocytes (%) (Auto) 10, Eosinophils (%) (Auto) 1, Basophils (%) (Auto) 0, Neutrophils # (Auto) 3.2, Lymphocytes # (Auto) 0.9, Monocytes # (Auto) 0.4, Eosinophils # (Auto) 0.0, Basophils # (Auto) 0.0, Sodium Level 144, Potassium Level 3.6, Chloride Level 112, Carbon Dioxide Level 24, Anion Gap 8, Blood Urea Nitrogen 27, Creatinine 1.62, Estimat Glomerular Filtration Rate 43, BUN/ Creatinine Ratio 17, Glucose Level 120, Calcium Level 8.1 01/13/17 05:22: White Blood Count 4.5, Red Blood Count 2.45, Hemoglobin 7.2, Hematocrit 23, Mean Corpuscular Volume 94, Mean Corpuscular Hemoglobin 29, Mean Corpuscular Hemoglobin Concent 31, Red Cell Distribution Width 13.9, Platelet Count 180, Mean Platelet Volume 10.4, Neutrophils (%) (Auto) 60, Lymphocytes (%) (Auto) 26 , Monocytes (%) (Auto) 12, Eosinophils (%) (Auto) 2, Basophils (%) (Auto) 0, Neutrophils # (Auto) 2.7, Lymphocytes # (Auto) 1.2, Monocytes # (Auto) 0.5, Eosinophils # (Auto) 0.1, Basophils # (Auto) 0.0, Sodium Level 138, Potassium Level 3.5, Chloride Level 108, Carbon Dioxide Level 22, Anion Gap 8, Blood Urea Nitrogen 20, Creatinine 1.37, Estimat Glomerular Filtration Rate 53, BUN/ Creatinine Ratio 15, Glucose Level 88, Calcium Level 7.8, Total Bilirubin 0.4, Aspartate Amino Transf (AST/SGOT) 11, Alanine Aminotransferase (ALT/SGPT) 13, Alkaline Phosphatase 45, Total Protein 5.9, Albumin 2.9 01/13/17 10:05: Urine Color YELLOW, Urine Clarity SLIGHTLY CLOUDY, Urine pH 6.5, Urine Specific [place] 1.010, Urine Protein 2+, Urine Glucose (UA) NEGATIVE, Urine Ketones NEGATIVE, Urine Nitrite NEGATIVE, Urine Bilirubin NEGATIVE, Urine Urobilinogen NORMAL, Urine Leukocyte Esterase 3+, Urine RBC (Auto) 4+, Urine RBC 25-50, Urine WBC 25-50, Urine Crystals NONE, Urine Bacteria TRACE, Urine Casts NONE, Urine Mucus NEGATIVE, Urine Culture Indicated YES 01/14/17 05:29: White Blood Count 4.5, Red Blood Count 3.29, Hemoglobin 9.5, Hematocrit 30, Mean Corpuscular Volume 92, Mean Corpuscular Hemoglobin 29, Mean Corpuscular Hemoglobin Concent 32, Red Cell Distribution Width 14.1, Platelet Count 182, Mean Platelet Volume 10.9, Sodium Level 139, Potassium Level 3.5, Chloride Level 108, Carbon Dioxide Level 23, Anion Gap 8, Blood Urea Nitrogen 14, Creatinine 1.39, Estimat Glomerular Filtration Rate 52, BUN/Creatinine Ratio 10 , Glucose Level 81, Calcium Level 8.3 01/14/17 12:05: Lab Scanned Report Transfusion Reaction Form Discharge Home Medications: Active Scripts Active Bactrim Ds Tablet (Sulfamethoxazole/Trimethoprim) 1 Each Tablet 1 Each PO BID 3 Days Reported Miralax (Polyethylene Glycol 3350) 17 Gm Powd.pack 17 Gm PO DAILY PRN Imodium A-D (Loperamide HCl) 2 Mg Tablet 2 Mg PO UD PRN DO NOT EXCEED 6 TABLETS IN 24 HOURS Simvastatin 10 Mg Tablet 10 Mg PO HS Tylenol Extra Strength (Acetaminophen) 500 Mg Tablet 500 Mg PO Q6H PRN Pantoprazole Sodium 20 Mg Tablet.dr 20 Mg PO DAILY Instructions to patient/family Please see electronic discharge instructions given to patient. Clinical Quality Measures DVT/VTE Risk/Contraindication: Risk Factor Score Per Nursin RFS Level Per Nursing on Admit: 2=Moderate NEAL FOWLER DO Jan 18, 2017 07:23
== END 2017-01-14 16:55 | DRG 690 ==
LOC: EDUNIT# 23:18 → ER 23:19 → ICU 01-12 00:35 → 4TH 01-12 09:25
PROVIDERS: ADMIT Family Medicine; ATTEND Family Medicine
DX: N39.0 Urinary tract infection, site not specified (principal); B96.20 Unspecified Escherichia coli [E. coli] as the cause of diseases classified elsewhere; J98.11 Atelectasis; I95.9 Hypotension, unspecified; E86.0 Dehydration; F03.90 Unspecified dementia, unspecified severity, without behavioral disturbance, psychotic disturbance, mood disturbance, and anxiety; E78.00 Pure hypercholesterolemia, unspecified; I25.2 Old myocardial infarction; F32.9 Major depressive disorder, single episode, unspecified; F41.9 Anxiety disorder, unspecified; K21.9 Gastro-esophageal reflux disease without esophagitis; N28.9 Disorder of kidney and ureter, unspecified; D64.9 Anemia, unspecified
CPT/HCPCS: 36415; 51702; 71010; 80048; 80053; 80164; 81000; 82550; 82553; 83605; 83735; 84484; 85025; 85027; 85610; 85730; 86850; 86900; 86901; 86920; 87040; 87077; 87088; 87186; 93005; 93041; 96361; 96365; 96375

== ENCOUNTER 2017-03-23 11:49 | Emergency (ER) | payer MEDICARE, MEDICAID ==
[~2017-03-23] VITALS: Ht 175.3 cm; Wt 77.3 kg
[~2017-03-23 11:49] MED LIST changes: +DIPH25TA65 PO; +DIVA500T PO; +LOPE-134 PO; +MIRT30TA6 PO; +POLY17PO6 PO; +RISP2TAB3 PO; +SULF1TAB35 PO
[2017-03-23 12:08] VITALS: BP 118/82
--- NOTE | 2017-03-23 12:28 | ED General ---
General Chief Complaint: Fever-Adult/Adol Stated Complaint: FEVER,CLOUDY URINE Source of Information: Group Home Records Exam Limitations: No Limitations History of Present Illness Time Seen by Provider: 12:27 Initial Comments Sent to ER from [facility] with reports of a fever and cloudy urine. Patient is nonverbal. Timing/Duration: 1-2 Days Severity: Moderate Allergies and Home Medications Allergies Coded Allergies: Penicillins (Verified Allergy, Unknown, 06/17/14) Home Medications Acetaminophen 500 Mg Tablet, 500 MG PO Q6H PRN for PAIN-MILD, (Reported) Levofloxacin 250 Mg Tablet, 250 MG PO DAILY for 10 Days Prescribed by: ARACELI MENDEZ on 03/23/17 1333 Loperamide HCl 2 Mg Tablet, 2 MG PO UD PRN for DIARRHEA, (Reported) DO NOT EXCEED 6 TABLETS IN 24 HOURS Pantoprazole Sodium 20 Mg Tablet.dr, 20 MG PO DAILY, (Reported) Polyethylene Glycol 3350 17 Gm Powd.pack, 17 GM PO DAILY PRN for CONSTIPATION- 2ND LINE, (Reported) Simvastatin 10 Mg Tablet, 10 MG PO HS, (Reported) Sulfamethoxazole/Trimethoprim 1 Each Tablet, 1 EACH PO BID for 3 Days, #6 Prescribed by: SOFI LAM on 01/14/17 1137 Constitutional: see HPI, fever EENTM: see HPI Respiratory: see HPI, cough Genitourinary: no symptoms reported Musculoskeletal: no symptoms reported Skin: no symptoms reported Psychiatric/Neurological: No Symptoms Reported Hematologic/Lymphatic: No Symptoms Reported Immunological/Allergic: no symptoms reported Past Iqoxadb-Dxinmj-Yckgqk Hx Patient Social History 2nd Hand Smoke Exposure: No Recent Foreign Travel: No Contact w/Someone Who Travel: No Recent Hopitalizations: No Immunizations Up To Date Date of Pneumonia Vaccine: Mar 23, 2016 Date of Influenza Vaccine: Feb 23, 2015 Seasonal Allergies Seasonal Allergies: No Surgeries History of Surgeries: No (UNKNOWN) Respiratory History of Respiratory Disorde: Yes ( pneumonia May 2014) Respiratory Disorders: Pneumonia Currently Using CPAP: No Currently Using BIPAP: No Cardiovascular History of Cardiac Disorders: Yes Cardiac Disorders: Heart Attack, High Cholesterol Neurological History of Neurological Disord: Yes (ALZHEIMERS) Neurological Disorders: Dementia, Stroke Reproductive System Hx Reproductive Disorders: No Sexually Transmitted Disease: No Genitourinary History of Genitourinary Disor: Yes (INCONTINENT OF URINE--WEARS ADULT DIAPERS) Genitourinary Disorders: UTI-Chronic Gastrointestinal History of Gastrointestinal Di: Yes Gastrointestinal Disorders: Gastroesophageal Reflux Musculoskeletal History of Musculoskeletal Dis: Yes (ARTHOPHATHY; GENERALIZED WEAKNESS, IMPAIRED MOBILITY) Musculoskeletal Disorders: Arthritis, Spasms Endocrine History of Endocrine Disorders: No HEENT History of HEENT Disorders: Yes HEENT Disorders: Dysphagia Cancer History of Cancer: No Psychosocial History of Psychiatric Problem: Yes Behavioral Health Disorders: Anxiety, Depression Integumentary History of Skin or Integumenta: No Blood Transfusions History of Blood Disorders: No Adverse Reaction to a Blood Tr: No Family Medical History Family Medial History: Unknown Physical Exam Vital Signs Vital Sign - Last 12Hours 03/23/17 12:08 Temp 99.8 Pulse 109 Resp 20 B/P (MAP) 118/82 Pulse Ox 98 O2 Delivery Room Air Capillary Refill : General Appearance: No Apparent Distress, WD/WN, Other (patient is nonverbal. Eyes are open. Does not assist with standing. Appears much older than stated age.) Eyes: Bilateral Eye Normal Inspection, Bilateral Eye PERRL, Bilateral Eye EOMI HEENT: PERRL/EOMI, TMs Normal Neck: Full Range of Motion, Normal Inspection Respiratory: Normal Breath Sounds, No Accessory Muscle Use, No Respiratory Distress Cardiovascular: Regular Rate, Rhythm, Normal Peripheral Pulses Neurologic/Psychiatric: Alert Skin: Normal Color, Warm/Dry Focused Exam Evaluation Lactate Level Laboratory Tests 03/23/17 12:15: Lactic Acid Level 1.07 Lactic Acid Level Laboratory Tests Test 03/23/17 12:15 Lactic Acid Level 1.07 MMOL/L (0.50-2.00) Progress/Results/Core Measures Suspected Sepsis SIRS Temperature: Pulse: Respiratory Rate: Laboratory Tests 03/23/17 12:15: White Blood Count 7.1 Blood Pressure / Mean: Laboratory Tests 03/23/17 12:15: Lactic Acid Level 1.07 Laboratory Tests 03/23/17 12:15: Creatinine 1.87H, Platelet Count 133 Results/Orders Lab Results Laboratory Tests Test 03/23/17 12:15 03/23/17 13:00 Range/Units White Blood Count 7.1 4.3-11.0 10^3/uL Red Blood Count 3.58 L 4.35-5.85 10^6/uL Hemoglobin 10.6 L 13.3-17.7 G/DL Hematocrit 33 L 40-54 % Mean Corpuscular Volume 92 80-99 FL Mean Corpuscular Hemoglobin 30 25-34 PG Mean Corpuscular Hemoglobin Concent 32 32-36 G/DL Red Cell Distribution Width 14.5 10.0-14.5 % Platelet Count 133 130-400 10^3/uL Mean Platelet Volume 11.3 H 7.4-10.4 FL Neutrophils (%) (Auto) 74 42-75 % Lymphocytes (%) (Auto) 14 12-44 % Monocytes (%) (Auto) 12 0-12 % Eosinophils (%) (Auto) 0 0-10 % Basophils (%) (Auto) 0 0-10 % Neutrophils # (Auto) 5.2 1.8-7.8 X 10^3 Lymphocytes # (Auto) 1.0 1.0-4.0 X 10^3 Monocytes # (Auto) 0.8 0.0-1.0 X 10^3 Eosinophils # (Auto) 0.0 0.0-0.3 10^3/uL Basophils # (Auto) 0.0 0.0-0.1 10^3/uL Sodium Level 144 135-145 MMOL/L Potassium Level 4.0 3.6-5.0 MMOL/L Chloride Level 108 H 98-107 MMOL/L Carbon Dioxide Level 24 21-32 MMOL/L Anion Gap 12 5-14 MMOL/L Blood Urea Nitrogen 29 H 7-18 MG/DL Creatinine 1.87 H 0.60-1.30 MG/DL Estimat Glomerular Filtration Rate 37 BUN/Creatinine Ratio 16 Glucose Level 128 H 70-105 MG/DL Lactic Acid Level 1.07 0.50-2.00 MMOL/L Calcium Level 9.4 8.5-10.1 MG/DL Urine Color YELLOW Urine Clarity SLIGHTLY CLOUDY Urine pH 6 5-9 Urine Specific [place] 1.010 L 1.016-1.022 Urine Protein 3+ H NEGATIVE Urine Glucose (UA) NEGATIVE NEGATIVE Urine Ketones NEGATIVE NEGATIVE Urine Nitrite POSITIVE H NEGATIVE Urine Bilirubin NEGATIVE NEGATIVE Urine Urobilinogen 1 NORMAL MG/DL Urine Leukocyte Esterase 3+ H NEGATIVE Urine RBC (Auto) 3+ H NEGATIVE Urine RBC 2-5 H /HPF Urine WBC >100 H /HPF Urine Squamous Epithelial Cells 0-2 /HPF Urine Crystals NONE /LPF Urine Bacteria LARGE H /HPF Urine Casts NONE /LPF Urine Mucus NEGATIVE /LPF Urine Culture Indicated NO Micro Results Microbiology 03/23/17 Influenza Types A,B Antigen (BILL) - Final, Complete My Orders Orders - ARACELI MENDEZ APRN Lactic Acid Analyzer (03/23/17 12:01) Blood Culture (03/23/17 12:01) Cbc With Automated Diff (03/23/17 12:01) Basic Metabolic Panel (03/23/17 12:01) Ua Culture If Indicated (03/23/17 12:01) Chest 1 View, Ap/Pa Only (03/23/17 12:21) Influenza A And B Antigens (03/23/17 12:21) Saline Lock/Iv-Start (03/23/17 12:35) Ns Iv 1000 Ml (Sodium Chloride 0.9%) (03/23/17 12:45) Ceftriaxone Injection (Rocephin Injectio (03/23/17 13:30) Vital Signs/I&O Vital Sign - Last 12Hours 03/23/17 12:08 Temp 99.8 Pulse 109 Resp 20 B/P (MAP) 118/82 Pulse Ox 98 O2 Delivery Room Air Capillary Refill : Departure Communication (Admissions) Progress Notes I did discuss the case with Dr. Dr. Fowler. Patient was given 1 L of a IV fluids here in the emergency room. He will be given 1 g of IV Rocephin. Historically has grown Escherichia coli from the urine sensitive to Rocephin and Levaquin. We will send him back to the assisted as he is afebrile here with normal CBC. Repeat a basic metabolic panel in the morning and treat empirically with Levaquin 250 mg daily for 10 days which will be appropriate for his renal function. Impression Impression: Primary Impression: Acute on chronic renal insufficiency Additional Impression: Urinary tract infection Disposition: SNF Condition: Stable Departure-Patient Inst. Decision time for Depature: 13:31 Referrals: NEAL FOWLER DO (PCP/Family) Primary Care Physician Patient Instructions: Urinary Tract Infection, Adult (DC) Add. Discharge Instructions: 1. Make sure that he drinks plenty of fluids. Encourage him and remind him to drink frequently today. We will repeat a basic metabolic panel tomorrow. He was given Rocephin 1 g in the emergency room and will start Levaquin 250 mg daily at home for the next 10 days. Return to ER for any worsening. Tylenol for any recurrent fevers. All discharge instructions reviewed with patient and/ or family. Voiced understanding. Scripts Levofloxacin (Levaquin) 250 Mg Tablet 250 MG PO DAILY for 10 Days, TAB Prov: ARACELI MENDEZ APRN 03/23/17 ARACELI MENDEZ APRN Mar 23, 2017 12:28
[2017-03-23 12:29] LABS: BASOPHILS % (AUTO) 0 % (0-10); EOSINOPHILS % (AUTO) 0 % (0-10); LYMPHOCYTES % (AUTO) 14 % (12-44); MEAN CORPUSCULAR HEMOGLOBIN 30 PG (25-34); MEAN CORPUSCULAR HGB CONC 32 G/DL (32-36); MEAN CORPUSCULAR VOLUME 92 FL (80-99); MEAN PLATELET VOLUME 11.3 FL (7.4-10.4); MONOCYTES # (AUTO) 0.8 X 10^3 (0.0-1.0); MONOCYTES % (AUTO) 12 % (0-12); NEUTROPHILS # (AUTO) 5.2 X 10^3 (1.8-7.8); NEUTROPHILS % (AUTO) 74 % (42-75); PLATELET COUNT 133 10^3/uL (130-400); RED BLOOD COUNT 3.58 10^6/uL (4.35-5.85); RED CELL DISTRIBUTION WIDTH 14.5 % (10.0-14.5); WHITE BLOOD COUNT 7.1 10^3/uL (4.3-11.0)
[2017-03-23] MEDS ORDERED: NS IV 1000 ML 1,000 ML IV SCH (12:45)
[2017-03-23 12:46] LABS: CALCIUM 9.4 MG/DL (8.5-10.1); CREATININE SERUM 1.87 MG/DL (0.60-1.30)
--- NOTE | 2017-03-23 12:58 | Diagnostic Imaging Report ---
INDICATION: Urinary tract infection EXAMINATION: Portable chest at 12:52 PM Heart size and pulmonary vascularity are normal. Lungs are clear. There are no effusions or pneumothoraces. IMPRESSION: Negative chest. Dictated by: Dictated on workstation # [id number]
[2017-03-23 13:06] LABS: BILIRUBIN,URINE NEGATIVE (NEGATIVE); KETONES,URINE NEGATIVE (NEGATIVE); LEUKOCYTE ESTERASE ,URINE 3+ (NEGATIVE); NITRITE,URINE POSITIVE (NEGATIVE); PH,URINE 6 (5-9); PROTEIN,URINE 3+ (NEGATIVE); UROBILINOGEN,URINE 1 MG/DL (NORMAL)
[2017-03-23 13:13] LABS: WBC,URINE >100 /HPF
[2017-03-23 13:14] LABS: SQUAMOUS EPITHELIAL CELL,UR 0-2 /HPF
[2017-03-23] MEDS ORDERED: cefTRIAXone INJECTION 1,000 MG in NS (IVPB) 50 ML IV ONE (13:30)
[2017-03-23] MEDS ORDERED: LEVO250T11 PO (13:33)
== END 2017-03-23 14:05 ==
LOC: EDUNIT# 11:49 → ER 11:52
DX: N17.9 Acute kidney failure, unspecified (principal); N18.9 Chronic kidney disease, unspecified; N39.0 Urinary tract infection, site not specified; F41.9 Anxiety disorder, unspecified; F32.9 Major depressive disorder, single episode, unspecified; K21.9 Gastro-esophageal reflux disease without esophagitis; I25.2 Old myocardial infarction; E78.00 Pure hypercholesterolemia, unspecified; Z87.01 Personal history of pneumonia (recurrent); Z86.73 Personal history of transient ischemic attack (TIA), and cerebral infarction without residual deficits
CPT/HCPCS: 36415; 51701; 71010; 80048; 81000; 83605; 85025; 87040; 87804

== ENCOUNTER → 2018-06-28 | Outpatient (CLI) | payer MEDICARE, MEDICAID ==
[~2018-06-28] MED LIST changes: +DIVA-76 PO; -DIVA500T7 PO; +LEVO250T11 PO
--- NOTE | 2018-06-28 16:14 | Diagnostic Imaging Report ---
INDICATION: PAIN IN RT ANKLE SWOLLEN RT ANKLE COMPARISON: None. FINDINGS: Three views of the right ankle were obtained. There is no acute fracture or dislocation. No focal osseous lesions are seen. The moderate generalized soft tissue swelling of the right ankle. There are no radiopaque foreign bodies. IMPRESSION: 1. Moderate generalized soft tissue swelling of the right ankle, but no evidence of acute fracture or dislocation. Dictated by: Dictated on workstation # [id number]
== END ==
LOC: RAD 14:44
PROVIDERS: ATTEND Family Medicine
DX: M25.471 Effusion, right ankle (principal)
CPT/HCPCS: 73610

== ENCOUNTER → 2019-02-28 | Emergency (ER) | payer MEDICARE, MEDICAID ==
[~2019-02-28] VITALS: Ht 177.8 cm; Wt 68.1 kg
[~2019-02-28] MED LIST changes: +LEVO500T2 PO
[2019-02-28 14:57] LABS: BASOPHILS % (AUTO) 0 % (0-10); EOSINOPHILS # (AUTO) 0.3 10^3/uL (0.0-0.3); EOSINOPHILS % (AUTO) 5 % (0-10); HEMATOCRIT 36 % (40-54); HEMOGLOBIN 11.5 G/DL (13.3-17.7); LYMPHOCYTES # (AUTO) 1.1 X 10^3 (1.0-4.0); LYMPHOCYTES % (AUTO) 19 % (12-44); MEAN CORPUSCULAR HEMOGLOBIN 31 PG (25-34); MEAN CORPUSCULAR HGB CONC 32 G/DL (32-36); MEAN CORPUSCULAR VOLUME 96 FL (80-99); MEAN PLATELET VOLUME 9.9 FL (7.4-10.4); MONOCYTES # (AUTO) 0.7 X 10^3 (0.0-1.0); MONOCYTES % (AUTO) 11 % (0-12); NEUTROPHILS # (AUTO) 3.9 X 10^3 (1.8-7.8); NEUTROPHILS % (AUTO) 65 % (42-75); PLATELET COUNT 114 10^3/uL (130-400); RED CELL DISTRIBUTION WIDTH 13.7 % (10.0-14.5); WHITE BLOOD COUNT 5.9 10^3/uL (4.3-11.0)
--- NOTE | 2019-02-28 15:14 | ED General ---
General Chief Complaint: General Problems/Pain Stated Complaint: VOMITING Nursing Triage Note: Pt to ED from [facility] with sudden onset of coughing after lunch. USP reports increased drooling, and coughing. No visible choking noted and O2 sats did not drop. Nursing Sepsis Screen: No Definite Risk Source of Information: EMS, Skilled Nursing Records Exam Limitations: No Limitations History of Present Illness Date Seen by Provider: Feb 28, 2019 Time Seen by Provider: 15:12 Initial Comments To ER per private vehicle from [facility] with reports of sudden onset of coughing and choking after eating lunch today. There was no choking episode seen during lunch, this began afterwards and he was noted to have rhonchi. His oxygen saturation remained 98% and above. No fevers or chills. He is at the [facility] at the local custod[facility]. Timing/Duration: 1-2 Days Severity: Moderate Associated Systoms: Cough Allergies and Home Medications Allergies Coded Allergies: Penicillins (Verified Allergy, Unknown, 06/17/14) Home Medications Acetaminophen 500 Mg Tablet, 500 MG PO Q6H PRN for PAIN-MILD, (Reported) Levofloxacin 250 Mg Tablet, 250 MG PO DAILY Prescribed by: ARACELI MENDEZ on 03/23/17 1333 Levofloxacin 500 Mg Tablet, 500 MG PO DAILY Prescribed by: ARACELI MENDEZ on 02/28/19 1520 Loperamide HCl 2 Mg Tablet, 2 MG PO UD PRN for DIARRHEA, (Reported) DO NOT EXCEED 6 TABLETS IN 24 HOURS Pantoprazole Sodium 20 Mg Tablet.dr, 20 MG PO DAILY, (Reported) Polyethylene Glycol 3350 17 Gm Powd.pack, 17 GM PO DAILY PRN for CONSTIPATION- 2ND LINE, (Reported) Simvastatin 10 Mg Tablet, 10 MG PO HS, (Reported) Sulfamethoxazole/Trimethoprim 1 Each Tablet, 1 EACH PO BID Prescribed by: SOFI LAM on 01/14/17 1137 Patient Home Medication List Home Medication List Reviewed: Yes Review of Systems Review of Systems Constitutional: other (unable to obtain review of systems due to dementia) Past Wkpjngx-Muwzub-Ekdvtm Hx Patient Social History Alcohol Use: Denies Use Recreational Drug Use: No 2nd Hand Smoke Exposure: No Recent Foreign Travel: No Contact w/Someone Who Travel: No Recent Infectious Disease Expo: No Recent Hopitalizations: No Immunizations Up To Date Date of Pneumonia Vaccine: Mar 23, 2016 Date of Influenza Vaccine: Feb 23, 2015 Seasonal Allergies Seasonal Allergies: No Past Medical History Surgeries: No (UNKNOWN) Respiratory: Yes ( pneumonia May 2014) Pneumonia Currently Using CPAP: No Currently Using BIPAP: No Cardiac: Yes Heart Attack, High Cholesterol Neurological: Yes (ALZHEIMERS) Dementia, Stroke Reproductive Disorders: No Sexually Transmitted Disease: No Genitourinary: Yes (INCONTINENT OF URINE--WEARS ADULT DIAPERS) UTI-Chronic Gastrointestinal: Yes Gastroesophageal Reflux Musculoskeletal: Yes (ARTHOPHATHY; GENERALIZED WEAKNESS, IMPAIRED MOBILITY) Arthritis, Spasms Endocrine: No HEENT: Yes Dysphagia Cancer: No Psychosocial: Yes Anxiety, Depression Integumentary: No Blood Disorders: No Adverse Reaction/Blood Tranf: No Family Medical History Unknown Physical Exam Vital Signs Vital Signs - First Documented 02/28/19 14:40 Temp 36.8 Pulse 105 Resp 18 B/P (MAP) 136/90 (105) Pulse Ox 98 O2 Delivery Room Air Capillary Refill : Greater Than 3 Seconds Height, Weight, BMI Height: 5'9.00" Weight: 170lbs. 8.0oz. 77.542441rm; 21.00 BMI Method:Estimated General Appearance: No Apparent Distress, WD/WN, Chronically ill Eyes: Bilateral Eye Normal Inspection, Bilateral Eye PERRL, Bilateral Eye EOMI HEENT: PERRL/EOMI Neck: Full Range of Motion, Normal Inspection Respiratory: No Accessory Muscle Use, No Respiratory Distress, Rhonci Cardiovascular: Regular Rate, Rhythm, Normal Peripheral Pulses Gastrointestinal: Normal Bowel Sounds, Non Tender, Soft Extremity: Normal Capillary Refill, Normal Inspection Neurologic/Psychiatric: Alert, Disoriented Skin: Normal Color, Warm/Dry Progress/Results/Core Measures Suspected Sepsis Recent Fever Within 48 Hours: No Infection Criteria Present: None New/Unexplained Altered Menta: No Sepsis Screen: No Definite Risk SIRS Temperature: Pulse: 105 Respiratory Rate: 18 Laboratory Tests 02/28/19 14:45: White Blood Count 5.9 Blood Pressure 136 /90 Mean: 105 Laboratory Tests 02/28/19 14:45: Creatinine 1.80H, Platelet Count 114L, Total Bilirubin 0.4 Results/Orders Lab Results Laboratory Tests Test 02/28/19 14:45 Range/Units White Blood Count 5.9 4.3-11.0 10^3/uL Red Blood Count 3.76 L 4.35-5.85 10^6/uL Hemoglobin 11.5 L 13.3-17.7 G/DL Hematocrit 36 L 40-54 % Mean Corpuscular Volume 96 80-99 FL Mean Corpuscular Hemoglobin 31 25-34 PG Mean Corpuscular Hemoglobin Concent 32 32-36 G/DL Red Cell Distribution Width 13.7 10.0-14.5 % Platelet Count 114 L 130-400 10^3/uL Mean Platelet Volume 9.9 7.4-10.4 FL Neutrophils (%) (Auto) 65 42-75 % Lymphocytes (%) (Auto) 19 12-44 % Monocytes (%) (Auto) 11 0-12 % Eosinophils (%) (Auto) 5 0-10 % Basophils (%) (Auto) 0 0-10 % Neutrophils # (Auto) 3.9 1.8-7.8 X 10^3 Lymphocytes # (Auto) 1.1 1.0-4.0 X 10^3 Monocytes # (Auto) 0.7 0.0-1.0 X 10^3 Eosinophils # (Auto) 0.3 0.0-0.3 10^3/uL Basophils # (Auto) 0.0 0.0-0.1 10^3/uL Sodium Level 145 135-145 MMOL/L Potassium Level 5.0 3.6-5.0 MMOL/L Chloride Level 110 H 98-107 MMOL/L Carbon Dioxide Level 24 21-32 MMOL/L Anion Gap 11 5-14 MMOL/L Blood Urea Nitrogen 16 7-18 MG/DL Creatinine 1.80 H 0.60-1.30 MG/DL Estimat Glomerular Filtration Rate 38 BUN/Creatinine Ratio 9 Glucose Level 102 70-105 MG/DL Calcium Level 9.5 8.5-10.1 MG/DL Corrected Calcium 9.4 8.5-10.1 MG/DL Total Bilirubin 0.4 0.1-1.0 MG/DL Aspartate Amino Transf (AST/SGOT) 10 5-34 U/L Alanine Aminotransferase (ALT/SGPT) 6 0-55 U/L Alkaline Phosphatase 64 40-136 U/L Total Protein 7.8 6.4-8.2 GM/DL Albumin 4.1 3.2-4.5 GM/DL Micro Results Microbiology 02/28/19 Influenza Types A,B Antigen (BILL) - Final, Complete My Orders Orders - ARACELI MENDEZ APRN Cbc With Automated Diff (02/28/19 14:42) Comprehensive Metabolic Panel (02/28/19 14:42) Chest 1 View, Ap/Pa Only (02/28/19 14:42) Influenza A And B Antigens (02/28/19 14:42) Rt Request For Service (02/28/19 14:52) Vital Signs/I&O 02/28/19 14:40 Temp 36.8 Pulse 105 Resp 18 B/P (MAP) 136/90 (105) Pulse Ox 98 O2 Delivery Room Air Capillary Refill : Greater Than 3 Seconds Blood Pressure Mean: 105 POS Diagnostic Imaging Diagonstic Imaging: Xray Comments NAME: DARREN LOPEZ MED REC#: [id number] PT STATUS: REG ER : 1955 PHYSICIAN: ARACELI MENDEZ APRN ADMIT DATE: 02/28/19/ER Draft POSDate of Exam:02/28/19 CHEST 1 VIEW, AP/PA ONLY INDICATION: Vomiting. Frontal chest obtained at 3:22 p.m. and compared to 03/23/2017. FINDINGS: Heart and mediastinal silhouette are normal in appearance. The lungs are clear. There is no pneumothorax or pleural fluid. IMPRESSION: Negative chest. Dictated on workstation # [id number] Dict: 02/28/19 1544 Trans: 02/28/19 1546 [id number] Interpreted by: DIXIE ATKINSON MD Electronically signed by: Departure Communication (Admissions) Respiratory therapy was able to suction some brownish material via deep nasotracheal suction. Impression Primary Impression: Aspiration into airway Qualified Codes: T17.908A - Unspecified foreign body in respiratory tract, part unspecified causing other injury, initial encounter Disposition: 01 HOME, SELF-CARE Condition: Stable Departure-Patient Inst. Decision time for Depature: 15:19 Referrals: NEAL FOWLER DO (PCP/Family) Primary Care Physician Patient Instructions: Aspiration Pneumonia Add. Discharge Instructions: 1. Follow-up with Dr. Dr. Fowler, he'll need a repeat chest x-ray later on in the week on Tuesday if he fails to improve. He turned to ER for any fever worsening symptoms or other concerns. All discharge instructions reviewed with patient and/or family. Voiced understanding. Scripts Levofloxacin (Levaquin) 500 Mg Tablet 500 MG PO DAILY, #5 TAB Prov: ARACELI MENDEZ APRN 02/28/19 ARACELI MENDEZ APRN Feb 28, 2019 15:13 POS
[2019-02-28 15:16] LABS: ALBUMIN 4.1 GM/DL (3.2-4.5); BILIRUBIN,TOTAL 0.4 MG/DL (0.1-1.0); CALCIUM 9.5 MG/DL (8.5-10.1); CREATININE SERUM 1.8 MG/DL (0.60-1.30); TOTAL PROTEIN 7.8 GM/DL (6.4-8.2)
--- NOTE | 2019-02-28 15:46 | Diagnostic Imaging Report ---
INDICATION: Vomiting. Frontal chest obtained at 3:22 p.m. and compared to 03/23/2017. FINDINGS: Heart and mediastinal silhouette are normal in appearance. The lungs are clear. There is no pneumothorax or pleural fluid. IMPRESSION: Negative chest. Dictated by: Dictated on workstation # [id number]
[2019-02-28 17:00] VITALS: BP 136/90
== END | disposition home or self-care (01) ==
LOC: EDUNIT# 14:35 → ER 14:36
DX: T17.920A Food in respiratory tract, part unspecified causing asphyxiation, initial encounter (principal); I25.2 Old myocardial infarction; F41.9 Anxiety disorder, unspecified; F32.9 Major depressive disorder, single episode, unspecified; G30.9 Alzheimer's disease, unspecified; F02.80 Dementia in other diseases classified elsewhere, unspecified severity, without behavioral disturbance, psychotic disturbance, mood disturbance, and anxiety; E78.00 Pure hypercholesterolemia, unspecified; K21.9 Gastro-esophageal reflux disease without esophagitis; Z86.73 Personal history of transient ischemic attack (TIA), and cerebral infarction without residual deficits; Z87.440 Personal history of urinary (tract) infections; Z88.0 Allergy status to penicillin; Z87.01 Personal history of pneumonia (recurrent)
CPT/HCPCS: 36415; 71045; 80053; 85025; 87804

== ENCOUNTER 2019-03-01 08:53 | Emergency (ER) | payer MEDICARE, MEDICAID ==
[~2019-03-01] VITALS: Ht 177.8 cm; Wt 72.2 kg
--- NOTE | 2019-03-01 09:19 | ED Respiratory ---
General Chief Complaint: Respiratory Problems Stated Complaint: VOMITING;FEVER Source: half-way records, caregiver History of Present Illness Date Seen by Provider: Mar 01, 2019 Time Seen by Provider: 09:00 Initial Comments 63-year-old male brought in due to fever, increasing cough, fever and respiratory concerns. Patient is a half-way patient is nonverbal from a previous CVA. Patient was seen yesterday and diagnosed with likely aspiration pneumonia. Caregiver reports that Tonight he had increased seen fever with some lethargy and decreased responsiveness this morning. Patient also had to be suctioned frequently. Patient cannot provide any information but this is from the caregiver review her notes. Patient fever as high as 101 at the half-way this morning per the caregiver. Allergies and Home Medications Allergies Coded Allergies: Penicillins (Verified Allergy, Unknown, 06/17/14) Home Medications Acetaminophen 500 Mg Tablet, 500 MG PO Q6H PRN for PAIN-MILD, (Reported) Levofloxacin 250 Mg Tablet, 250 MG PO DAILY Prescribed by: ARACELI MENDEZ on 03/23/17 1333 Levofloxacin 500 Mg Tablet, 500 MG PO DAILY Prescribed by: ARACELI MENDEZ on 02/28/19 1520 Loperamide HCl 2 Mg Tablet, 2 MG PO UD PRN for DIARRHEA, (Reported) DO NOT EXCEED 6 TABLETS IN 24 HOURS Pantoprazole Sodium 20 Mg Tablet.dr, 20 MG PO DAILY, (Reported) Polyethylene Glycol 3350 17 Gm Powd.pack, 17 GM PO DAILY PRN for CONSTIPATION- 2ND LINE, (Reported) Simvastatin 10 Mg Tablet, 10 MG PO HS, (Reported) Sulfamethoxazole/Trimethoprim 1 Each Tablet, 1 EACH PO BID Prescribed by: SOFI LAM on 01/14/17 1137 Patient Home Medication List Home Medication List Reviewed: Yes Review of Systems Review of Systems Constitutional: fever Respiratory: cough Patient's review of systems is limited based on the norm for non-verbal with report from caregiver Past Oztqhpk-Zmttdq-Umfhqo Hx Past Med/Social Hx: Reviewed Nursing Past Med/Soc Hx Patient Social History 2nd Hand Smoke Exposure: No Recent Hopitalizations: No Immunizations Up To Date Date of Pneumonia Vaccine: Mar 23, 2016 Date of Influenza Vaccine: Feb 23, 2015 Seasonal Allergies Seasonal Allergies: No Past Medical History Surgeries: No (UNKNOWN) Respiratory: Yes ( pneumonia May 2014) Pneumonia Currently Using CPAP: No Currently Using BIPAP: No Cardiac: Yes Heart Attack, High Cholesterol Neurological: Yes (ALZHEIMERS) Dementia, Stroke Reproductive Disorders: No Sexually Transmitted Disease: No Genitourinary: Yes (INCONTINENT OF URINE--WEARS ADULT DIAPERS) UTI-Chronic Gastrointestinal: Yes Gastroesophageal Reflux Musculoskeletal: Yes (ARTHOPHATHY; GENERALIZED WEAKNESS, IMPAIRED MOBILITY) Arthritis, Spasms Endocrine: No HEENT: Yes Dysphagia Cancer: No Psychosocial: Yes Anxiety, Depression Integumentary: No Blood Disorders: No Adverse Reaction/Blood Tranf: No Family Medical History Unknown Physical Exam Vital Signs - First Documented 03/01/19 09:03 Temp 37.0 Pulse 83 Resp 18 B/P (MAP) 109/71 (84) Pulse Ox 96 O2 Delivery Room Air Capillary Refill : Height: 5'9.00" Weight: 170lbs. 8.0oz. 77.304134tr; 21.00 BMI Method:Estimated General Appearance: no apparent distress Eyes: Bilateral Eye PERRL Respiratory: no respiratory distress, decreased breath sounds (mild ) Cardiovascular: regular rate, rhythm Gastrointestinal: soft Neurologic/Psychiatric: other (no acute changes per her caregiver) Skin: normal color, warm/dry Focused Exam Lactate Level 03/01/19 09:35: Lactic Acid Level 0.86 Lactic Acid Level Laboratory Tests Test 03/01/19 09:35 Lactic Acid Level 0.86 MMOL/L (0.50-2.00) Progress/Results/Core Measures Suspected Sepsis SIRS Temperature: Pulse: Respiratory Rate: Laboratory Tests 03/01/19 09:35: White Blood Count 6.6 Blood Pressure / Mean: 03/01/19 09:35: Lactic Acid Level 0.86 Laboratory Tests 03/01/19 09:35: Creatinine 1.96H, Platelet Count 116L, Total Bilirubin 0.8 Results/Orders Lab Results Laboratory Tests Test 03/01/19 09:35 Range/Units White Blood Count 6.6 4.3-11.0 10^3/uL Red Blood Count 3.51 L 4.35-5.85 10^6/uL Hemoglobin 10.8 L 13.3-17.7 G/DL Hematocrit 33 L 40-54 % Mean Corpuscular Volume 95 80-99 FL Mean Corpuscular Hemoglobin 31 25-34 PG Mean Corpuscular Hemoglobin Concent 32 32-36 G/DL Red Cell Distribution Width 13.8 10.0-14.5 % Platelet Count 116 L 130-400 10^3/uL Mean Platelet Volume 9.9 7.4-10.4 FL Neutrophils (%) (Auto) 75 42-75 % Lymphocytes (%) (Auto) 12 12-44 % Monocytes (%) (Auto) 12 0-12 % Eosinophils (%) (Auto) 1 0-10 % Basophils (%) (Auto) 0 0-10 % Neutrophils # (Auto) 4.9 1.8-7.8 X 10^3 Lymphocytes # (Auto) 0.8 L 1.0-4.0 X 10^3 Monocytes # (Auto) 0.8 0.0-1.0 X 10^3 Eosinophils # (Auto) 0.0 0.0-0.3 10^3/uL Basophils # (Auto) 0.0 0.0-0.1 10^3/uL Sodium Level 140 135-145 MMOL/L Potassium Level 4.3 3.6-5.0 MMOL/L Chloride Level 108 H 98-107 MMOL/L Carbon Dioxide Level 23 21-32 MMOL/L Anion Gap 9 5-14 MMOL/L Blood Urea Nitrogen 16 7-18 MG/DL Creatinine 1.96 H 0.60-1.30 MG/DL Estimat Glomerular Filtration Rate 35 BUN/Creatinine Ratio 8 Glucose Level 89 70-105 MG/DL Lactic Acid Level 0.86 0.50-2.00 MMOL/L Calcium Level 9.1 8.5-10.1 MG/DL Corrected Calcium 9.2 8.5-10.1 MG/DL Total Bilirubin 0.8 0.1-1.0 MG/DL Aspartate Amino Transf (AST/SGOT) 13 5-34 U/L Alanine Aminotransferase (ALT/SGPT) 8 0-55 U/L Alkaline Phosphatase 63 40-136 U/L Total Protein 7.6 6.4-8.2 GM/DL Albumin 3.9 3.2-4.5 GM/DL Micro Results Microbiology 03/01/19 Influenza Types A,B Antigen (BILL) - Final, Complete My Orders Orders - GWENDOLYN TREJO DO Cbc With Automated Diff (03/01/19 09:13) Comprehensive Metabolic Panel (03/01/19 09:13) Blood Culture (03/01/19 09:13) Sputum Culture (03/01/19 09:13) Chest 1 View, Ap/Pa Only (03/01/19 09:13) Ed Iv/Invasive Line Start (03/01/19 09:13) Vital Signs Adult Sepsis Patie Q15M (03/01/19 09:13) O2 (03/01/19 09:13) Lactic Acid Analyzer (03/01/19 09:13) Influenza A And B Antigens (03/01/19 09:13) Ed Iv/Invasive Line Start (03/01/19 10:25) Ns Iv 500 Ml (Sodium Chloride 0.9%) (03/01/19 10:25) Medications Given in ED Current Medications Medications Dose Ordered Sig/Juan Route Start Time Stop Time Status Last Admin Dose Admin Sodium Chloride 500 ml @ 0 mls/hr Q0M ONCE IV 03/01/19 10:25 03/01/19 10:27 DC 03/01/19 10:37 500 MLS/HR Vital Signs/I&O 03/01/19 09:03 Temp 37.0 Pulse 83 Resp 18 B/P (MAP) 109/71 (84) Pulse Ox 96 O2 Delivery Room Air Capillary Refill : Progress Note : Time: 10:57 Progress Note Patient stable throughout his stay. Patient with oxygen it patient in the upper 90s, no signs of distress, no acute findings on lab or x-ray. Patient with a likely upper respiratory infection is already on Levaquin. He will be discharged back to the half-way in stable condition Departure Impression Primary Impression: Upper respiratory infection Qualified Codes: J06.9 - Acute upper respiratory infection, unspecified Disposition: 01 HOME, SELF-CARE Condition: Stable Departure-Patient Inst. Referrals: NEAL FOWLER DO (PCP/Family) Primary Care Physician Patient Instructions: Acute Bronchitis, Adult (DC), Bacterial Upper Respiratory Infection, Adult (DC) GWENDOLYN TREJO DO Mar 01, 2019 09:19 POS
[2019-03-01 09:43] LABS: BASOPHILS % (AUTO) 0 % (0-10); EOSINOPHILS % (AUTO) 1 % (0-10); HEMATOCRIT 33 % (40-54); HEMOGLOBIN 10.8 G/DL (13.3-17.7); LYMPHOCYTES # (AUTO) 0.8 X 10^3 (1.0-4.0); LYMPHOCYTES % (AUTO) 12 % (12-44); MEAN CORPUSCULAR HEMOGLOBIN 31 PG (25-34); MEAN CORPUSCULAR HGB CONC 32 G/DL (32-36); MEAN CORPUSCULAR VOLUME 95 FL (80-99); MEAN PLATELET VOLUME 9.9 FL (7.4-10.4); MONOCYTES # (AUTO) 0.8 X 10^3 (0.0-1.0); MONOCYTES % (AUTO) 12 % (0-12); NEUTROPHILS # (AUTO) 4.9 X 10^3 (1.8-7.8); NEUTROPHILS % (AUTO) 75 % (42-75); PLATELET COUNT 116 10^3/uL (130-400); RED CELL DISTRIBUTION WIDTH 13.8 % (10.0-14.5); WHITE BLOOD COUNT 6.6 10^3/uL (4.3-11.0)
[2019-03-01 10:03] LABS: ALBUMIN 3.9 GM/DL (3.2-4.5); BILIRUBIN,TOTAL 0.8 MG/DL (0.1-1.0); CALCIUM 9.1 MG/DL (8.5-10.1); CREATININE SERUM 1.96 MG/DL (0.60-1.30); POTASSIUM 4.3 MMOL/L (3.6-5.0); TOTAL PROTEIN 7.6 GM/DL (6.4-8.2)
--- NOTE | 2019-03-01 10:13 | Diagnostic Imaging Report ---
INDICATION: Fever. COMPARISON: 02/28/2019 FINDINGS: Single frontal view of the chest demonstrates normal heart size and pulmonary vascularity. Evaluation of the lung bobby demonstrates minimal platelike atelectasis within the left lower lung. Otherwise, lungs are clear. No large pleural effusion or pneumothorax is seen. The visualized osseous structures show no acute abnormalities. IMPRESSION: 1. No acute cardiopulmonary process. Dictated by: Dictated on workstation # [id number]
[2019-03-01] MEDS ORDERED: NS IV 500 ML 500 ML IV ONE (10:25)
--- NOTE | 2019-03-01 10:57 | NUR ---
CALLED AND TALKED WITH ORA AT [facility]. Addendum: 03/01/19 at 1113 by EDY STAFF WILL COME GET HIM.
--- NOTE | 2019-03-01 11:54 | NUR ---
CON'T TO WAIT FOR [facility] TO COME PICK PATIENT UP.
--- NOTE | 2019-03-01 11:56 | NUR ---
CALLED [facility] TO CHECK WHEN THEY ARE COMING TO GET HIM.
[2019-03-01 12:20] VITALS: BP 124/60
--- NOTE | 2019-03-01 12:21 | NUR ---
[facility] STAFF HERE TO GET PATIENT.
== END 2019-03-01 12:20 | disposition home or self-care (01) ==
LOC: EDUNIT# 08:53 → ER 08:54
DX: J06.9 Acute upper respiratory infection, unspecified (principal); I25.2 Old myocardial infarction; E78.00 Pure hypercholesterolemia, unspecified; G30.9 Alzheimer's disease, unspecified; F02.80 Dementia in other diseases classified elsewhere, unspecified severity, without behavioral disturbance, psychotic disturbance, mood disturbance, and anxiety; K21.9 Gastro-esophageal reflux disease without esophagitis; F41.9 Anxiety disorder, unspecified; F32.9 Major depressive disorder, single episode, unspecified; Z87.440 Personal history of urinary (tract) infections; Z86.73 Personal history of transient ischemic attack (TIA), and cerebral infarction without residual deficits; Z88.0 Allergy status to penicillin; Z87.01 Personal history of pneumonia (recurrent)
CPT/HCPCS: 36415; 71045; 80053; 83605; 85025; 87040; 87804

== ENCOUNTER → 2019-05-21 | Outpatient (CLI) | payer MEDICARE, MEDICAID ==
[~2019-05-21] MED LIST changes: +SIMV10TA26 PO; -SIMV10TA3 PO; +SIMV20TA26 PO; -SIMV20TA3 PO; +SIMV40TA25 PO; -SIMV40TA4 PO; +TRM50T PO
--- NOTE | 2019-05-21 11:39 | Diagnostic Imaging Report ---
INDICATION: Aspiration. Study was performed in conjunction with speech therapy. Videofluoroscopy was performed during swallowing of barium of multiple consistencies. Patient ingested thin consistency as well as honey, nectar and pureed consistency. Patient also ingested mechanical soft and ground meat consistency. Total of 1 minute 20 seconds of fluoroscopic time was utilized. Oral phase unremarkable. There is mild early spillover with thin consistency. Normal epiglottic tilt and laryngeal elevation is seen. No laryngeal penetration or aspiration was observed. IMPRESSION: Essentially unremarkable modified barium swallow. No penetration or aspiration was observed. Dictated by: Dictated on workstation # [id number]
== END ==
LOC: RAD 10:15
PROVIDERS: ATTEND Family Medicine
DX: R13.12 Dysphagia, oropharyngeal phase (principal)
CPT/HCPCS: 74230

== ENCOUNTER 2020-03-17 11:06 | Inpatient (IN) | payer MEDICARE, MEDICAID ==
[~2020-03-17] VITALS: Ht 177 cm; Wt 63.5 kg
[2020-03-17] VITALS (8 sets, daily range): BP systolic 79–129; BP diastolic 64–106
[~2020-03-17 11:06] MED LIST changes: +PANT20TA18 PO; -PANT20TA3 PO; -RISP2TAB3 PO; +RISP2TAB84 PO; -RISP3TAB3 PO; +RISP3TAB62 PO
[2020-03-17] MEDS ORDERED: LACTATED RINGERS 2,000 ML IV ONE (11:26)
[2020-03-17] MEDS ORDERED: LACTATED RINGERS 1,000 ML IV STA ×2 (11:29→13:41)
[2020-03-17] MEDS ORDERED: LACTATED RINGERS 1,000 ML IV ONE (11:29)
[2020-03-17 11:37] LABS: BASOPHILS % (AUTO) 0 % (0-10); EOSINOPHILS % (AUTO) 0 % (0-10); HEMOGLOBIN 12.8 g/dL (13.3-17.7); MEAN CORPUSCULAR HEMOGLOBIN 28 pg (25-34); MEAN PLATELET VOLUME 13.3 fL (9.0-12.2); NEUTROPHILS % (AUTO) 90 % (42-75)
[2020-03-17 11:38] LABS: HEMATOCRIT 45 % (40-54); LYMPHOCYTES # (AUTO) 0.3 10^3/uL (1.0-4.0); LYMPHOCYTES % (AUTO) 4 % (12-44); MEAN CORPUSCULAR HGB CONC 29 g/dL (32-36); MEAN CORPUSCULAR VOLUME 98 fL (80-99); MONOCYTES # (AUTO) 0.3 10^3/uL (0.0-1.0); MONOCYTES % (AUTO) 5 % (0-12); NEUTROPHILS # (AUTO) 6.4 10^3/uL (1.8-7.8); PLATELET COUNT 123 10^3/uL (130-400); WHITE BLOOD COUNT 7.1 10^3/uL (4.3-11.0)
[2020-03-17 11:43] LABS: POTASSIUM 4.3 MMOL/L (3.6-5.0)
[2020-03-17 11:45] LABS: TOTAL PROTEIN 8.9 GM/DL (6.4-8.2)
[2020-03-17 11:46] LABS: INR 1.3 (0.8-1.4); PROTHROMBIN TIME PATIENT 16.1 SEC (12.2-14.7)
[2020-03-17 11:47] LABS: BILIRUBIN,TOTAL 0.4 MG/DL (0.1-1.0)
[2020-03-17 11:49] LABS: CREATININE SERUM 5.86 MG/DL (0.60-1.30)
[2020-03-17 12:09] LABS: CREATINE KINASE MB 0.8 NG/ML (<6.6)
[2020-03-17 12:10] LABS: BILIRUBIN,URINE NEGATIVE (NEGATIVE); CLARITY,URINE SL CLOUDY; COLOR,URINE YELLOW; GLUCOSE, URINE (UA) NEGATIVE (NEGATIVE); KETONES,URINE NEGATIVE (NEGATIVE); LEUKOCYTE ESTERASE ,URINE 1+ (NEGATIVE); NITRITE,URINE NEGATIVE (NEGATIVE); PROTEIN,URINE 2+ (NEGATIVE)
[2020-03-17 12:16] LABS: BAND NEUTROPHILS 28 %; NEUTROPHILS % (MANUAL) 60 %
[2020-03-17 12:17] LABS: ATYPICAL LYMPHOCYTES 1 %; BASOPHILS % (MANUAL) 0 %; EOSINOPHILS % (MANUAL) 0 %; LYMPHOCYTES % (MANUAL) 7 %; MONOCYTES % (MANUAL) 4 %
--- NOTE | 2020-03-17 12:19 | NUR ---
16 fr jauregui catheter inserted via voip technician, immediate cloudy, sediment urine return noted, catheter secured with stat lock
--- NOTE | 2020-03-17 12:20 | ED General ---
General Chief Complaint: Respiratory Problems Stated Complaint: RESP DISTRESS, COVID + Nursing Triage Note: pt presents to ed via ems from [facility] for respiratory distress, hypoxia, and tachypnea. pt is known covid positive. Nursing Sepsis Screen: Possible Sepsis Risk Source of Information: Patient, EMS Exam Limitations: Physical Impairments History of Present Illness Date Seen by Provider: Mar 17, 2020 Time Seen by Provider: 11:15 Initial Comments Arrives from [facility] via EMS where patient was found to be hypoxic. Sadi holly is positive for COVID-19. He apparently was significantly short of breath and was in the 70s on O2 sats on typical 3 L. This did come up to low 90s on 15 L. Patient does have advanced Alzheimer's disease and is typically nonverbal. Is a full code. Patient unable to answer any questions due to underlying medical condition. Patient is tachycardic and hypotensive as well as hypoxic. Overall is critically ill. Timing/Duration: 2-3 Days, Getting Worse Severity: Severe Associated Systoms: Fever/Chills, Shortness of Air Allergies and Home Medications Allergies Coded Allergies: Penicillins (Verified Allergy, Unknown, 06/17/14) Home Medications Acetaminophen 500 Mg Tablet, 500 MG PO Q6H PRN for PAIN-MILD, (Reported) Levofloxacin 250 Mg Tablet, 250 MG PO DAILY Prescribed by: ARACELI MENDEZ on 03/23/17 1333 Levofloxacin 500 Mg Tablet, 500 MG PO DAILY Prescribed by: ARACELI MENDEZ on 02/28/19 1520 Loperamide HCl 2 Mg Tablet, 2 MG PO UD PRN for DIARRHEA, (Reported) DO NOT EXCEED 6 TABLETS IN 24 HOURS Pantoprazole Sodium 20 Mg Tablet.dr, 20 MG PO DAILY, (Reported) Polyethylene Glycol 3350 17 Gm Powd.pack, 17 GM PO DAILY PRN for CONSTIPATION- 2ND LINE, (Reported) Simvastatin 10 Mg Tablet, 10 MG PO HS, (Reported) Sulfamethoxazole/Trimethoprim 1 Each Tablet, 1 EACH PO BID Prescribed by: SOFI LAM on 01/14/17 1137 Patient Home Medication List Home Medication List Reviewed: Yes Review of Systems Review of Systems Constitutional: see HPI Unable to complete review of systems due to underlying medical condition Past Qrvvlxb-Etikjn-Lnrtht Hx Past Med/Social Hx: Reviewed Nursing Past Med/Soc Hx Patient Social History Alcohol Use: Denies Use Recreational Drug Use: No Smoking Status: Unknown if Ever Smoked 2nd Hand Smoke Exposure: No Recent Foreign Travel: No Contact w/Someone Who Travel: No Recent Infectious Disease Expo: No Recent Hopitalizations: No Immunizations Up To Date Date of Pneumonia Vaccine: Mar 23, 2016 Date of Influenza Vaccine: Feb 23, 2015 Seasonal Allergies Seasonal Allergies: No Past Medical History Surgeries: No (UNKNOWN) Respiratory: Yes ( pneumonia May 2014) Pneumonia Currently Using CPAP: No Currently Using BIPAP: No Cardiac: Yes Heart Attack, High Cholesterol Neurological: Yes (ALZHEIMERS) Dementia, Stroke Reproductive Disorders: No Sexually Transmitted Disease: No Genitourinary: Yes (INCONTINENT OF URINE--WEARS ADULT DIAPERS) UTI-Chronic Gastrointestinal: Yes Gastroesophageal Reflux Musculoskeletal: Yes (ARTHOPHATHY; GENERALIZED WEAKNESS, IMPAIRED MOBILITY) Arthritis, Spasms Endocrine: No HEENT: Yes Dysphagia Cancer: No Psychosocial: Yes Anxiety, Depression Integumentary: No Blood Disorders: No Adverse Reaction/Blood Tranf: No Family Medical History Reviewed Nursing Family Hx Unknown Physical Exam-Suspected Sepsis Physical Exam Vital Signs Vital Signs - First Documented 03/17/20 11:10 Temp 38.0 Pulse 140 Resp 40 B/P (MAP) 118/79 (92) Pulse Ox 94 O2 Delivery Nasal Cannula O2 Flow Rate 6.00 Capillary Refill : Less Than 3 Seconds Blood Pressure Mean: 92 Height, Weight, BMI Height: 5'9.00" Weight: 170lbs. 8.0oz. 77.535636hj; 20.00 BMI Method:Estimated General Appearance: Chronically ill, Thin HEENT: Pharynx Normal (Erythematous), Other (Mucous membranes dry) Neck: Non Tender, Supple Respiratory: Crackles (Bilateral bases), Respiratory Distress (Tachypnea and hypoxia) Cardiovascular: No Murmur, Tachycardia (Profound in the rates of 140s to 150s) Gastrointestinal: Non Tender, Soft Back: Normal Inspection, No CVA Tenderness, No Vertebral Tenderness Extremity: Normal Range of Motion, Non Tender Neurologic/Psychiatric: Alert, Oriented x3 Skin: normal color, warm/dry Focused Exam Lactate Level 03/17/20 11:17: Lactic Acid Level 4.80*H Lactic Acid Level Laboratory Tests Test 03/17/20 11:17 Lactic Acid Level 4.80 MMOL/L (0.50-2.00) *H Procedures/Interventions Lumen: triple Central Line Procedure: betadine prep, sterile drapes applied, sterile dressing applied Position: femoral (R) Anesthesia: local Volume Anesthetic (ccs): 5 Post Position: sutured Very difficult access and placed via ultrasound guidance to the right femoral vein. Unable to access right IJ due to volume depletion and poor neck mobility. Good return and flush. Sutured in place. Covered with sterile dressing. Tolerated procedure well with no complications. Progress/Results/Core Measures Suspected Sepsis Recent Fever Within 48 Hours: Yes Infection Criteria Present: Documented Infection New/Unexplained Altered Menta: No Sepsis Screen: Possible Sepsis Risk SIRS Temperature: Pulse: 140 Respiratory Rate: 40 Laboratory Tests 03/17/20 11:17: White Blood Count 7.1 Blood Pressure 118 /79 Mean: 92 03/17/20 11:17: Lactic Acid Level 4.80*H Laboratory Tests 03/17/20 11:17: Creatinine 5.86H, INR Comment 1.3, Platelet Count 123L, Total Bilirubin 0.4 Results/Orders Lab Results Laboratory Tests Test 03/17/20 11:17 03/17/20 12:00 Range/Units White Blood Count 7.1 4.3-11.0 10^3/uL Red Blood Count 4.55 4.30-5.52 10^6/uL Hemoglobin 12.8 L 13.3-17.7 g/dL Hematocrit 45 40-54 % Mean Corpuscular Volume 98 80-99 fL Mean Corpuscular Hemoglobin 28 25-34 pg Mean Corpuscular Hemoglobin Concent 29 L 32-36 g/dL Red Cell Distribution Width 14.6 H 10.0-14.5 % Platelet Count 123 L 130-400 10^3/uL Mean Platelet Volume 13.3 H 9.0-12.2 fL Immature Granulocyte % (Auto) 1 % Neutrophils (%) (Auto) 90 H 42-75 % Lymphocytes (%) (Auto) 4 L 12-44 % Monocytes (%) (Auto) 5 0-12 % Eosinophils (%) (Auto) 0 0-10 % Basophils (%) (Auto) 0 0-10 % Neutrophils # (Auto) 6.4 1.8-7.8 10^3/uL Lymphocytes # (Auto) 0.3 L 1.0-4.0 10^3/uL Monocytes # (Auto) 0.3 0.0-1.0 10^3/uL Eosinophils # (Auto) 0.0 0.0-0.3 10^3/uL Basophils # (Auto) 0.0 0.0-0.1 10^3/uL Immature Granulocyte # (Auto) 0.0 0.0-0.1 10^3/uL Neutrophils % (Manual) 60 % Lymphocytes % (Manual) 7 % Monocytes % (Manual) 4 % Eosinophils % (Manual) 0 % Basophils % (Manual) 0 % Band Neutrophils 28 % Atypical Lymphocytes 1 % Toxic Granulation 1+ Prothrombin Time 16.1 H 12.2-14.7 SEC INR Comment 1.3 0.8-1.4 Activated Partial Thromboplast Time 30 24-35 SEC D-Dimer 3.74 H 0.00-0.49 UG/ML Sodium Level 164 *H 135-145 MMOL/L Potassium Level 4.3 3.6-5.0 MMOL/L Chloride Level 121 H 98-107 MMOL/L Carbon Dioxide Level 18 L 21-32 MMOL/L Anion Gap 25 H 5-14 MMOL/L Blood Urea Nitrogen 156 *H 7-18 MG/DL Creatinine 5.86 H 0.60-1.30 MG/DL Estimat Glomerular Filtration Rate 10 BUN/Creatinine Ratio 27 Glucose Level 218 H 70-105 MG/DL Lactic Acid Level 4.80 *H 0.50-2.00 MMOL/L Calcium Level 9.0 8.5-10.1 MG/DL Corrected Calcium 9.0 8.5-10.1 MG/DL Total Bilirubin 0.4 0.1-1.0 MG/DL Aspartate Amino Transf (AST/SGOT) 18 5-34 U/L Alanine Aminotransferase (ALT/SGPT) 13 0-55 U/L Alkaline Phosphatase 57 40-136 U/L Creatine Kinase MB 0.8 <6.6 NG/ML Total Protein 8.9 H 6.4-8.2 GM/DL Albumin 4.0 3.2-4.5 GM/DL Procalcitonin 1.36 H <0.10 NG/ML Urine Color YELLOW Urine Clarity SL CLOUDY Urine pH 7.0 5-9 Urine Specific [place] 1.020 1.016-1.022 Urine Protein 2+ H NEGATIVE Urine Glucose (UA) NEGATIVE NEGATIVE Urine Ketones NEGATIVE NEGATIVE Urine Nitrite NEGATIVE NEGATIVE Urine Bilirubin NEGATIVE NEGATIVE Urine Urobilinogen 0.2 < = 1.0 MG/DL Urine Leukocyte Esterase 1+ H NEGATIVE Urine RBC (Auto) TRACE-I NEGATIVE Urine RBC 0-2 /HPF Urine WBC 5-10 H /HPF Urine Squamous Epithelial Cells 0-2 /HPF Urine Crystals NONE /LPF Urine Bacteria LARGE H /HPF Urine Casts NONE /LPF Urine Mucus NEGATIVE /LPF Urine Culture Indicated YES My Orders Orders - NOREEN DYE MD Lactated Ringers (Lr 1000 Ml Iv Solution (03/17/20 11:26) Cbc With Automated Diff (03/17/20 11:29) Comprehensive Metabolic Panel (03/17/20 11:29) Blood Culture (03/17/20 11:29) Sputum Culture (03/17/20 11:29) Urinalysis (03/17/20 11:29) Urine Culture (03/17/20 11:29) Protime With Inr (03/17/20 11:29) Partial Thromboplastin Time (03/17/20 11:29) Chest 1 View, Ap/Pa Only (03/17/20 11:29) Ed Iv/Invasive Line Start (03/17/20 11:29) Ed Iv/Invasive Line Start (03/17/20 11:29) Vital Signs Adult Sepsis Patie Q15M (03/17/20 11:29) O2 (03/17/20 11:29) Remove Rings In Anticipation O (03/17/20 11:29) Lactic Acid Analyzer (03/17/20 11:29) Lactated Ringers (Lr 1000 Ml Iv Solution (03/17/20 11:29) Lactated Ringers (Lr 1000 Ml Iv Solution (03/17/20 11:29) Creatine Kinase Mb (03/17/20 11:40) Fibrin Degradation Products (03/17/20 11:40) Procalcitonin (Pct) (03/17/20 11:40) Manual Differential (03/17/20 11:17) Catheter(Urinary) Insert & Ass 03,15 (03/17/20 12:07) Covid-19 External Lab Results (03/17/20 13:16) Lactated Ringers (Lr 1000 Ml Iv Solution (03/17/20 13:41) Cefepime Injection (Maxipime Injection) (03/17/20 14:15) Medications Given in ED Current Medications Medications Dose Ordered Sig/Juan Route Start Time Stop Time Status Last Admin Dose Admin Lactated Ringer's 1,000 ml @ 0 mls/hr Q0M ONCE IV 03/17/20 11:29 03/17/20 11:31 DC 03/17/20 11:43 0 MLS/HR Vital Signs/I&O 03/17/20 11:10 Temp 38.0 Pulse 140 Resp 40 B/P (MAP) 118/79 (92) Pulse Ox 94 O2 Delivery Nasal Cannula O2 Flow Rate 6.00 Capillary Refill : Less Than 3 Seconds Blood Pressure Mean: 92 Progress Note : Progress Note Seen and evaluated. IV, labs, EKG, chest x-ray, blood cultures and lactic acid ordered. Patient is tachycardic and hypotensive concerning for septic shock secondary to COVID-19 illness and likely pneumonia. LR 2 L bolus ordered. 1210: Lactic acid greater than 4 and BUN and creatinine are both severely elevated. Sodium and chloride are also severely elevated and I believe profound dehydration is a part of this. Patient's typical serum creatinine is in the range of 1.5. We will initiate central line access and Mitchell catheter. 1335: Patient was a very difficult central line placement. Initially started to the right IJ but there was significant deflation of the vein with every breath and patient has poor neck movement and I was unable to access the vessel. I did place right femoral line via ultrasound guidance without difficulty but also noted deflation of vessel with breathing. I believe the patient is significa ntly volume depleted. Patient's blood pressure has improved after 2 L of fluid and we will initiate LR at 250 an hour. Monitor patient. 1410: I did discuss the case with Dr. Ravi. Patient has rather profound acute renal failure in the setting of chronic renal disease which I believe is related to dehydration especially given the ultrasound findings. We will initiate cefepime 1 g IV now for likely pneumonia due to elevated procalcitonin and also has findings of urinary tract infection. O2 saturations have improved on 10 L via oxygen mask and is now in the upper 90s. Admit, inpatient status. Critical condition and high risk for mortality given underlying medical problems and current disease. To ICU. 1425: I attest to focused exam. ECG Initial ECG Impression Date: Mar 17, 2020 Initial ECG Impression Time: 11:36 Initial ECG Rate: 141 Initial ECG Rhythm: S.Tach Comment Sinus tachycardia with low voltage. Abnormal T waves. Change from previous of 01/01/2017 with new tachycardia and PVCs as well as worsening left axis deviation. No evidence of ST elevation ND. Interpreted by me. Diagnostic Imaging Diagonstic Imaging: Xray Plain Films/CT/US/NM/MRI: chest Comments [facility] [place] NAME: DARREN LOPEZ [facility] REC#: [id number] PT STATUS: REG ER : 1955 PHYSICIAN: NOREEN DYE MD ADMIT DATE: 03/17/20/ER Draft Date of Exam:03/17/20 CHEST 1 VIEW, AP/PA ONLY INDICATION: Sepsis. Comparison made to the prior study from March 01, 2019. FINDINGS: When compared to the prior examination, there is new abnormal increased prominence of the basilar pulmonary interstitial markings. There is a trace degree of fluid present within the minor fissure. There is no dense alveolar consolidation. There is no effusion. There is no pneumothorax. Heart size appears stable. This central pulmonary vascularity appears unremarkable. IMPRESSION: 1. New abnormal basilar interstitial opacities. Given appearance of unremarkable central vascularity, a developing interstitial pneumonia is favored over edema. Dictated on workstation # [id number] Dict: 03/17/20 1235 Trans: 03/17/20 1237 CV [id number] Interpreted by: ISAI MARINO MD Electronically signed by: Reviewed: Reviewed by Me Departure Communication (Admissions) Time/Spoke to Admitting Phy: 14:10 Impression Primary Impression: Pneumonia due to COVID-19 virus Additional Impressions: Urinary tract infection Qualified Codes: N30.00 - Acute cystitis without hematuria Severe sepsis Acute on chronic renal failure Qualified Codes: N17.9 - Acute kidney failure, unspecified; N18.9 - Chronic kidney disease, unspecified Disposition: 09 ADMITTED INPATIENT Condition: Critical Admissions Decision to Admit Reason: Admit from ER (General) Decision to Admit/Date: Mar 17, 2020 Time/Decision to Admit Time: 14:10 Departure-Patient Inst. Referrals: NEAL FOWLER DO (PCP/Family) Primary Care Physician NOREEN DYE MD Mar 17, 2020 12:20
[2020-03-17 12:21] LABS: TOXIC GRANULATION/VACUOLAZATIO 1+
[2020-03-17 12:28] LABS: BACTERIA,URINE LARGE /HPF; RBC,URINE 0-2 /HPF; SQUAMOUS EPITHELIAL CELL,UR 0-2 /HPF
--- NOTE | 2020-03-17 12:38 | Diagnostic Imaging Report ---
INDICATION: Sepsis. Comparison made to the prior study from March 01, 2019. FINDINGS: When compared to the prior examination, there is new abnormal increased prominence of the basilar pulmonary interstitial markings. There is a trace degree of fluid present within the minor fissure. There is no dense alveolar consolidation. There is no effusion. There is no pneumothorax. Heart size appears stable. This central pulmonary vascularity appears unremarkable. IMPRESSION: 1. New abnormal basilar interstitial opacities. Given appearance of unremarkable central vascularity, a developing interstitial pneumonia is favored over edema. Dictated by: Dictated on workstation # [id number]
--- NOTE | 2020-03-17 12:52 | NUR ---
aborted attempt at right jugular vein central line placement, microbiology quality control technician used, ultrasound guidance used
--- NOTE | 2020-03-17 13:24 | NUR ---
tlc inserted via r femoral vein per via veterinary laboratory technician using ultrasound for access, sutured in place and secured with opsites
[2020-03-17] MEDS ORDERED: CEFEPIME INJECTION 1,000 MG in WATER (STERILE) FOR INJECTION 10 ML IV ONE (14:15)
--- NOTE | 2020-03-17 15:34 | NUR ---
Pt arrived to ICU room 11 at this time. Pt tachypenic, and hypoxic with O2 saturation of 85% on oxymask at 15L. RT notified and pt placed on vapotherm at this time. HR 130-140 on arrival. BP stable at this time. Temperature obtained of 102 at this time. LR started at 150 per admission orders. Pt nonverbal at baseline. Pt appears very critical on arrival. snf papers utilized for family contacts and health information. Will continue to monitor.
--- NOTE | 2020-03-17 16:00 | NUR ---
Pt placed on bipap at this time per RT. Pt 02 saturation on vapotherm 86-88%. EICU button pressed at this time for camera in orders. Dr. Hernandez also arrived at bedside during this time. Currently awaiting new orders.
[2020-03-17 16:12] LABS: ABG BASE EXCESS -8.2 MMOL/L (-2.5-2.5); ABG OXYGEN SATURATION 81 % (94-100); ABG PCO2 25 MMHG (35-45); ABG PH 7.41 (7.37-7.43); ABG PO2 56 MMHG (79-93); ABG TCO2 15.9 MMOL/L (21.0-31.0)
[2020-03-17 16:14] LABS: ALLENS TEST POSITIVE; INSPIRED O2 15 L; PATIENT TEMP 102; VENTILATOR NO
[2020-03-17] MEDS ORDERED: ACETAMINOPHEN 650 MG SUPP (TYLENOL) PR PRN ×2 (16:15→16:45)
--- NOTE | 2020-03-17 16:25 | NUR ---
EICU notified of pt's arrival at this time. ABG obtained and new CMP ordered. Dr. Hernandez also at bedside at this time.
[2020-03-17] MEDS ORDERED: morphine INJ 4 MG/ML 1 ML (VIAL/SYRINGE) ONE (16:41)
[2020-03-17] MEDS ORDERED: LORazepam INJ 2 MG/ML (ATIVAN) VIAL ONE (16:43)
[2020-03-17 16:45] LABS: ALBUMIN 3.1 GM/DL (3.2-4.5)
[2020-03-17] MEDS ORDERED: BISACODYL 10 MG SUPP (DULCOLAX) PR PRN (16:45)
[2020-03-17] MEDS ORDERED: PROMETHAZINE INJ 25 MG/ML (PHENERGAN) AMP IVP PRN (16:45)
[2020-03-17] MEDS ORDERED: GLYCOPYRROLATE 0.2 MG/ML (ROBINUL) 2 ML VIAL IV PRN (16:45)
[2020-03-17] MEDS ORDERED: ONDANSETRON 4 MG/2 ML (SDV) Z0FRAN IVP PRN (16:45)
[2020-03-17] MEDS ORDERED: RT-ALBUTEROL/IPRATROPIUM 3 ML (DUONEB) VIAL INH PRN (16:45)
--- NOTE | 2020-03-17 16:45 | NUR ---
Pt made comfort measures by Dr. Hernandez at this time per family requests. Pt given IV pain medication and anxiety medications and bipap removed at this time. O2 saturation 77% at this time. HR 129. Pt's breathing has become less labored with medications. Will continue to closely monitor pt at this time for comfort. EICU notified of pt's code status change.
[2020-03-17 16:46] LABS: POTASSIUM 4.2 MMOL/L (3.6-5.0)
[2020-03-17 16:48] LABS: TOTAL PROTEIN 6.9 GM/DL (6.4-8.2)
[2020-03-17] MEDS: morphine INJ 4 MG/ML 1 ML (VIAL/SYRINGE) IV PRN ×2 (16:48→23:59)
[2020-03-17] MEDS: LORazepam INJ 2 MG/ML (ATIVAN) VIAL IVP PRN ×3 (16:48→20:52)
[2020-03-17 16:50] LABS: BILIRUBIN,TOTAL 0.4 MG/DL (0.1-1.0)
[2020-03-17 16:52] LABS: CREATININE SERUM 4.98 MG/DL (0.60-1.30)
[2020-03-17] MEDS ORDERED: CATHETER FLUSH 10 ML SYR IV PRN (17:00)
--- NOTE | 2020-03-17 17:04 | NUR ---
This RN spoke with Kayleigh Hidalgo, pt's mkwxjg-bu-uch, at this time. Comfort provided to family during this time. Updates provided on pt's status. Family expressed concerns with inability to be with pt at time of . This RN reassured family that staff would remain at bedside during pt's passing. Will continue to closely monitor pt for signs of distress.
[2020-03-17] MEDS: SODIUM BICARBONATE 8.4% VIAL 100 MEQ in D5W 1000 ML IV SOLUTION 1,000 ML IV SCH (17:36)
[2020-03-17] MEDS ORDERED: morphine INJ 10 MG/ML 1ML (SYR OR VIAL) IVP STA (17:38)
[2020-03-17] MEDS: morphine INJ 4 MG/ML 1 ML (VIAL/SYRINGE) IV NR ×2 (18:05→19:38)
--- NOTE | 2020-03-17 20:41 | History & Physical-Hospitalist ---
History of Present Illness HPI/Chief Complaint Pankaj Lees is a 64 year old male with PMH advanced dementia, nonverbal, who presented with shortness of breath. He is a long-term resident at [facility]. He has reportedly been eating and drinking less lately. Upon my examination, he is unable to cooperate or provide any history. He appears uncomfortable and is very tachypneic. I spoke with his ftbzqh-zc-fmd, Kayleigh Hidalgo, on the phone. She is listed as his emergency contact, and this was verified with his facility. She reports that she is the one who helps make his medical decisions. We discussed the severity of his illness and his poor prognosis. She elected to transition him to comfort measures only status at this time. Source: family Exam Limitations: clinical condition Date Seen 03/17/20 Time Seen by a Provider: 16:45 Attending Physician Demetria Mars MD PCP Jesus Manuel Zamorano DO Referring Physician Date of Admission Mar 17, 2020 at 14:14 Home Medications & Allergies Home Medications Reviewed patient Home Medication Reconciliation performed by pharmacy medication reconciliations voip technician and/or nursing. Patients Allergies have been reviewed. Allergies Allergies Coded Allergies Penicillins (Verified Allergy, Unknown, 06/17/14) Past Ybqrmpz-Tdovcl-Bxemuq Hx Past Med/Social Hx: Reviewed Nursing Past Med/Soc Hx Patient Social History Alcohol Use: Denies Use Recreational Drug Use: No Smoking Status: Unknown if Ever Smoked 2nd Hand Smoke Exposure: No Recent Foreign Travel: No Contact w/other who traveled: No Recent Hopitalizations: No Recent Infectious Disease Expo: No Immunizations Up To Date Date of Pneumonia Vaccine: Mar 23, 2016 Date of Influenza Vaccine: Feb 23, 2015 Seasonal Allergies Seasonal Allergies: No Past Medical History Currently Using CPAP: No Currently Using BIPAP: No Cardiac: Heart Attack, High Cholesterol Neurological: Dementia, Stroke Reproductive: No Sexually Transmitted Disease: No Genitourinary: UTI-Chronic Gastrointestinal: Gastroesophageal Reflux Musculoskeletal: Arthritis, Spasms HEENT: Dysphagia Psychosocial: Anxiety, Depression History of Blood Disorders: No Adverse Reaction to Blood Mcginnis: No Family History Reviewed Nursing Family Hx Unknown Review of Systems Constitutional: see HPI, fever Respiratory: short of breath Physical Exam Physical Exam Vital Signs Vital Signs - First Documented 03/17/20 11:10 Temp 38.0 Pulse 140 Resp 40 B/P (MAP) 118/79 (92) Pulse Ox 94 O2 Delivery Nasal Cannula O2 Flow Rate 6.00 Capillary Refill : Greater Than 3 Seconds Height, Weight, BMI Height: 5'9.00" Weight: 170lbs. 8.0oz. 77.748689qt; 20.26 BMI Method:Estimated General Appearance: Chronically ill, Severe Distress (tachypnea), Thin HEENT: PERRL/EOMI, Other (dry mucous membranes) Respiratory: Decreased Breath Sounds, Respiratory Distress (tachypnea) Cardiovascular: No Edema, Tachycardia (regular rhythm) Gastrointestinal: Normal Bowel Sounds, Soft Extremity: Normal Inspection, No Pedal Edema Neurologic/Psychiatric: Alert, Aphasia Skin: Normal Color, Warm/Dry Results Results/Procedures Labs Laboratory Tests 03/17/20 11:17 03/17/20 16:15 Patient resulted labs reviewed. Imaging: Reviewed Imaging Report Assessment/Plan Admission Diagnosis Septic shock due to pneumonia Admission Status: Inpatient Order (span 2 midnights) Reason for Inpatient Admission: Septic shock Assessment and Plan Septic shock Bilateral pneumonia Acute respiratory failure due to COVID-19 Acute kidney injury superimposed on chronic kidney disease Lactic acidosis Hypernatremia Advanced dementia Poor prognosis Comfort measures only status SIRS+ with bandemia, fever, tachycardia, and tachypnea Septic source found to be pneumonia CXR showed bilateral infiltrates Procalcitonin elevated BUN/Cr significantly elevated, nearing need for hemodialysis Lactic acid elevated >4, increased to nearly 7 COVID positive Started on antibiotics Started on IV fluids Requiring maximal Vapotherm support On verge of requiring intubation Palliative care consulted, appreciate assistance Plan discussed with njckyw-xl-wna, transitioned to comfort measures Diagnosis/Problems Diagnosis/Problems (1) Acute respiratory failure due to COVID-19 Status: Acute (2) Septic shock Status: Acute (3) Multifocal pneumonia Status: Acute (4) Lactic acidosis Status: Acute (5) Acute kidney injury superimposed on chronic kidney disease Status: Acute (6) Hypernatremia Status: Acute (7) Advanced dementia Status: Chronic (8) Poor prognosis Status: Acute (9) Comfort measures only status Status: Acute DEMETRIA MARS MD Mar 17, 2020 20:41
--- NOTE | 2020-03-18 | NUR ---
Pt to floor from ICU via bed and 2 Staff. Received report prior to Pt leaving ICU. This nurse was updated on Pt current comfort care measures. Agreed with ICU Pt assessment, pt noted to have apneic breathing pattern. Morphine was administered prior to arrival to floor as reported by ICU nurse, to help with pain and respiratory efforts. Pt unable to communicate with staff. Will monitor pt and implement comfort measures.
[2020-03-18] MEDS: SODIUM BICARBONATE 8.4% VIAL 100 MEQ in D5W 1000 ML IV SOLUTION 1,000 ML IV SCH (01:08)
[2020-03-18] MEDS: morphine INJ 4 MG/ML 1 ML (VIAL/SYRINGE) IV PRN ×3 (04:05→20:16)
--- NOTE | 2020-03-18 04:15 | NUR ---
Pt experiencing periods of tachypnea, Morphine 2mg administered per PRN order at this time for air hunger.
[2020-03-18] MEDS ORDERED: ASCO500T7 PO (08:55)
[2020-03-18] MEDS ORDERED: CALC-250 PO (08:55)
[2020-03-18] MEDS ORDERED: POLY17PO6 PO (08:55)
[2020-03-18] MEDS ORDERED: SENN-234 PO (08:55)
[2020-03-18] MEDS ORDERED: [UNRECOGNIZED DRUG - CODE] TP (08:55)
[2020-03-18] MEDS ORDERED: DOCU-143 PO (08:55)
[2020-03-18] MEDS ORDERED: DICL100G18 TP (08:55)
[2020-03-18] MEDS ORDERED: DIVA125C10 PO (08:55)
[2020-03-18] MEDS ORDERED: ZINC50TA58 PO (08:55)
[2020-03-18] MEDS ORDERED: NYST1POW22 TOP (08:55)
[2020-03-18] MEDS ORDERED: MAGN400O7 PO (08:55)
[2020-03-18] MEDS ORDERED: CETI5TAB6 PO (08:55)
[2020-03-18] MEDS ORDERED: FAMO20TA3 PO (08:55)
[2020-03-18] MEDS ORDERED: RISP3TAB62 PO (08:55)
[2020-03-18] MEDS ORDERED: MIRT-96 PO (08:55)
[2020-03-18] MEDS ORDERED: ACET325T49 PO (08:55)
[2020-03-18] MEDS ORDERED: DEXA6TAB PO (08:55)
[2020-03-18] MEDS ORDERED: BISA10SU8 RC (08:55)
[2020-03-18] MEDS ORDERED: IBUP-2473 PO (08:55)
--- NOTE | 2020-03-18 08:57 | NUR ---
MED REC WAS ENTERED USING THE ORDER SUMMARY REPORT FROM [facility]
--- NOTE | 2020-03-18 09:05 | NUR ---
Palliative Care RN in to see patient. He is COVID+ so donned appropriate PPE. Patient was found to be unresponsive, He is having apneic periods of around 30 sec. Oral care completed with removal of dry crusty stuff from patient's tongue. He is not mottling, nor are his ears thinning at this time. It is expected that patient will pass here within the next 24-48 hours.
--- NOTE | 2020-03-18 15:02 | Progress Note - Hospitalist ---
Subjective HPI/CC On Admission Date Seen by Provider: Mar 18, 2020 Time Seen by Provider: 09:00 Pankaj Lees is a 64 year old male with PMH advanced dementia, nonverbal, who presented with shortness of breath. He is a long-term resident at [facility]. He has reportedly been eating and drinking less lately. Upon my e xamination, he is unable to cooperate or provide any history. He appears uncomfortable and is very tachypneic. I spoke with his lrghbw-fv-jwc, Kayleigh Hidalgo, on the phone. She is listed as his emergency contact, and this was verified with his facility. She reports that she is the one who helps make his medical decisions. We discussed the severity of his illness and his poor prognosis. She elected to transition him to comfort measures only status at this time. Subjective/Events-last exam He is unresponsive. He appears comfortable. He is having periods of apnea. Focused Exam Lactate Level 03/17/20 11:17: Lactic Acid Level 4.80*H 03/17/20 14:26: Lactic Acid Level 4.17*H 03/17/20 16:15: Lactic Acid Level 6.81*H Objective Exam Vital Signs Vital Signs Date Time Temp Pulse Resp B/P (MAP) Pulse Ox O2 Delivery O2 Flow Rate FiO2 03/18/20 09:00 Room Air 03/17/20 17:00 131 41 112/78 (96) 74 03/17/20 16:31 100.00 03/17/20 15:59 38.9 Capillary Refill : Greater Than 3 Seconds General Appearance: No Apparent Distress, Chronically ill Respiratory: Decreased Breath Sounds, Other (Garry-Goodrich respirations) Cardiovascular: Regular Rate, Rhythm, No Edema Gastrointestinal: Normal Bowel Sounds, Soft Extremity: Normal Inspection, No Pedal Edema Neurologic/Psychiatric: Other (unresponsive) Skin: Cool, Mottled Results/Procedures Lab Laboratory Tests 03/17/20 16:15 Patient resulted labs reviewed. Imaging: Reviewed Imaging Report Assessment/Plan Assessment and Plan Assess & Plan/Chief Complaint Septic shock Bilateral pneumonia Acute respiratory failure due to COVID-19 Acute kidney injury superimposed on chronic kidney disease Lactic acidosis Hypernatremia Advanced dementia Poor prognosis Comfort measures only status Continue comfort measures Diagnosis/Problems Diagnosis/Problems (1) Acute respiratory failure due to COVID-19 Status: Acute (2) Septic shock Status: Acute (3) Multifocal pneumonia Status: Acute (4) Lactic acidosis Status: Acute (5) Acute kidney injury superimposed on chronic kidney disease Status: Acute (6) Hypernatremia Status: Acute (7) Advanced dementia Status: Chronic (8) Poor prognosis Status: Acute (9) Comfort measures only status Status: Acute DEMETRIA MARS MD Mar 18, 2020 15:02
--- NOTE | 2020-03-18 15:14 | NUR ---
Palliative Care RN peaked at patient from window. Noted him to still have long periods of apnea. He is appearing to be cofortable at this time.
--- NOTE | 2020-03-18 15:52 | NUR ---
Patient nonresponsive at this time. Offered prayer. Attempted contact of patient's family, Kayleigh or Tarah. Both have the same number listed, , which is not operational.
--- NOTE | 2020-03-18 17:30 | NUR ---
TASHA SINCLAIR UPDATED ON PT CONDITION VIA PHONE AT THIS TIME
[2020-03-19] MEDS: SODIUM BICARBONATE 8.4% VIAL 100 MEQ in D5W 1000 ML IV SOLUTION 1,000 ML IV SCH ×4 (01:27→23:58)
[2020-03-19] MEDS: morphine INJ 4 MG/ML 1 ML (VIAL/SYRINGE) IV PRN (02:15)
--- NOTE | 2020-03-19 13:36 | Progress Note - Hospitalist ---
Subjective HPI/CC On Admission Date Seen by Provider: Mar 19, 2020 Time Seen by Provider: 10:15 Pankaj Lees is a 64 year old male with PMH advanced dementia, nonverbal, who presented with shortness of breath. He is a long-term resident at [facility]. He has reportedly been eating and drinking less lately. Upon my examination, he is unable to cooperate or provide any history. He appears uncomfortable and is very tachypneic. I spoke with his kyazdw-ni-usx, Kayleigh Hidalgo, on the phone. She is listed as his emergency contact, and this was verified with his facility. She reports that she is the one who helps make his medical decisions. We discussed the severity of his illness and his poor prognosis. She elected to transition him to comfort measures only status at this time. Subjective/Events-last exam He is unresponsive. He appears relatively comfortable, but is tachypneic intermittently. Focused Exam Lactate Level 03/17/20 11:17: Lactic Acid Level 4.80*H 03/17/20 14:26: Lactic Acid Level 4.17*H 03/17/20 16:15: Lactic Acid Level 6.81*H Objective Exam Vital Signs Vital Signs Date Time Temp Pulse Resp B/P (MAP) Pulse Ox O2 Delivery O2 Flow Rate FiO2 03/19/20 09:00 Room Air 03/17/20 17:00 131 41 112/78 (96) 74 03/17/20 16:31 100.00 03/17/20 15:59 38.9 Capillary Refill : Greater Than 3 Seconds General Appearance: No Apparent Distress, Chronically ill Respiratory: Lungs Clear, Normal Breath Sounds, No Respiratory Distress Cardiovascular: Regular Rate, Rhythm, No Edema, No Murmur Gastrointestinal: Normal Bowel Sounds, Soft Extremity: Normal Inspection, No Pedal Edema Neurologic/Psychiatric: Other (unresponsive) Skin: Normal Color, Warm/Dry Results/Procedures Lab Patient resulted labs reviewed. Imaging: Reviewed Imaging Report Assessment/Plan Assessment and Plan Assess & Plan/Chief Complaint Septic shock Bilateral pneumonia Acute respiratory failure due to COVID-19 Acute kidney injury superimposed on chronic kidney disease Lactic acidosis Hypernatremia Advanced dementia Poor prognosis Comfort measures only status Continue comfort measures Diagnosis/Problems Diagnosis/Problems (1) Acute respiratory failure due to COVID-19 Status: Acute (2) Septic shock Status: Acute (3) Multifocal pneumonia Status: Acute (4) Lactic acidosis Status: Acute (5) Acute kidney injury superimposed on chronic kidney disease Status: Acute (6) Hypernatremia Status: Acute (7) Advanced dementia Status: Chronic (8) Poor prognosis Status: Acute (9) Comfort measures only status Status: Acute DEMETRIA MARS MD Mar 19, 2020 13:36
[2020-03-19] MEDS: ARTIFICAL TEARS 0.4 ML UNIT DOSE (REFRESH PLUS) OU PRN (13:50)
[2020-03-19] MEDS: SALIVA STIMULANT MOUTH SPRAY (BIOTENE) 1.5 OZ MM PRN (13:50)
[2020-03-20] MEDS: SALIVA STIMULANT MOUTH SPRAY (BIOTENE) 1.5 OZ MM PRN ×3 (08:09→18:09)
[2020-03-20] MEDS: ARTIFICAL TEARS 0.4 ML UNIT DOSE (REFRESH PLUS) OU PRN ×3 (08:09→18:09)
[2020-03-20] MEDS: SODIUM BICARBONATE 8.4% VIAL 100 MEQ in D5W 1000 ML IV SOLUTION 1,000 ML IV SCH ×2 (09:56→22:12)
--- NOTE | 2020-03-20 12:23 | Progress Note - Hospitalist ---
Subjective HPI/CC On Admission Date Seen by Provider: Mar 20, 2020 Time Seen by Provider: 10:20 Pankaj Lees is a 64 year old male with PMH advanced dementia, nonverbal, who presented with shortness of breath. He is a long-term resident at [facility]. He has reportedly been eating and drinking less lately. Upon my examination, he is unable to cooperate or provide any history. He appears uncomfortable and is very tachypneic. I spoke with his iwlqxq-cl-qlg, Kayleigh iHdalgo, on the phone. She is listed as his emergency contact, and this was verified with his facility. She reports that she is the one who helps make his medical decisions. We discussed the severity of his illness and his poor prognosis. She elected to transition him to comfort measures only status at this time. Subjective/Events-last exam He is unresponsive. He is laying in bed. He is not following commands at the time of my exam. He appears comfortable, but is intermittently tachypneic. Focused Exam Lactate Level 03/17/20 14:26: Lactic Acid Level 4.17*H 03/17/20 16:15: Lactic Acid Level 6.81*H Objective Exam Vital Signs Vital Signs Date Time Temp Pulse Resp B/P (MAP) Pulse Ox O2 Delivery O2 Flow Rate FiO2 03/20/20 09:00 Room Air 03/17/20 17:00 131 41 112/78 (96) 74 03/17/20 16:31 100.00 03/17/20 15:59 38.9 Capillary Refill : Greater Than 3 Seconds General Appearance: No Apparent Distress, Chronically ill, Thin Respiratory: Decreased Breath Sounds, Respiratory Distress (intermittent tachypnea/apnea) Cardiovascular: Regular Rate, Rhythm, No Edema Gastrointestinal: Soft Extremity: Normal Inspection, No Pedal Edema Neurologic/Psychiatric: Other (obtunded, nonresponsive) Skin: Normal Color, Warm/Dry Results/Procedures Lab Patient resulted labs reviewed. Assessment/Plan Assessment and Plan Assess & Plan/Chief Complaint Septic shock Bilateral pneumonia Acute respiratory failure due to COVID-19 Acute kidney injury superimposed on chronic kidney disease Lactic acidosis Hypernatremia Advanced dementia Poor prognosis Comfort measures only status Continue comfort measures Diagnosis/Problems Diagnosis/Problems (1) Acute respiratory failure due to COVID-19 Status: Acute (2) Septic shock Status: Acute (3) Multifocal pneumonia Status: Acute (4) Lactic acidosis Status: Acute (5) Acute kidney injury superimposed on chronic kidney disease Status: Acute (6) Hypernatremia Status: Acute (7) Advanced dementia Status: Chronic (8) Poor prognosis Status: Acute (9) Comfort measures only status Status: Acute DEMETRIA MARS MD Mar 20, 2020 12:23
[2020-03-21 06:21] LABS: EOSINOPHILS % (AUTO) 0 % (0-10)
[2020-03-21 06:23] LABS: BASOPHILS % (AUTO) 0 % (0-10); HEMATOCRIT 45 % (40-54); LYMPHOCYTES # (AUTO) 0.6 10^3/uL (1.0-4.0); LYMPHOCYTES % (AUTO) 7 % (12-44); MEAN CORPUSCULAR HEMOGLOBIN 28 pg (25-34); MEAN CORPUSCULAR HGB CONC 27 g/dL (32-36); MEAN CORPUSCULAR VOLUME 105 fL (80-99); MEAN PLATELET VOLUME 13.6 fL (9.0-12.2); MONOCYTES # (AUTO) 0.2 10^3/uL (0.0-1.0); MONOCYTES % (AUTO) 3 % (0-12); NEUTROPHILS # (AUTO) 7.7 10^3/uL (1.8-7.8); NEUTROPHILS % (AUTO) 90 % (42-75); PLATELET COUNT 119 10^3/uL (130-400); WHITE BLOOD COUNT 8.5 10^3/uL (4.3-11.0)
[2020-03-21 06:27] LABS: POTASSIUM 5.1 MMOL/L (3.6-5.0)
[2020-03-21 06:28] LABS: CALCIUM 8.9 MG/DL (8.5-10.1)
[2020-03-21 06:33] LABS: CREATININE SERUM 5.24 MG/DL (0.60-1.30)
[2020-03-21] MEDS: SALIVA STIMULANT MOUTH SPRAY (BIOTENE) 1.5 OZ MM PRN (09:09)
--- NOTE | 2020-03-21 09:27 | NUR ---
DISCHARGE PLANNING: Patient continues to be CCMO and has had no significant decline since Tuesday when last seen by this RN. He is to be discharged back to [facility] today utilizing EMS for Non-Emergent transport due to his unresponsive state. I have spoken to the Alexandria PRADO at [facility] and to Kayleigh Hidalgo his DPOA. All are in agreement. Due to the number of cases in the building they are letting any Hospice into the building so he will be CCMO there with out hospice.
[2020-03-21] MEDS: SODIUM BICARBONATE 8.4% VIAL 100 MEQ in D5W 1000 ML IV SOLUTION 1,000 ML IV SCH (10:11)
[2020-03-21] MEDS ORDERED: SCOP1PAT11 TD (10:23)
[2020-03-21] MEDS ORDERED: LORA2ORA PO (10:23)
[2020-03-21] MEDS ORDERED: MORP100S3 PO (10:23)
--- NOTE | 2020-03-21 11:48 | NUR ---
EMS CALLED FOR TRANSPORT
[2020-03-21] MEDS: LORazepam INJ 2 MG/ML (ATIVAN) VIAL IVP PRN (12:04)
[2020-03-21 12:20] VITALS: BP 112/78
--- NOTE | 2020-03-21 12:20 | NUR ---
PIV AND CENTRAL LINE REMOVED PER ORDER, NORRIS LEFT IN PLACE. PT TOLERATED WELL, NO COMPLICATIONS OBSERVED. REPORT GIVEN AT BEDSIDE TO EMS AND CALLED TO [facility] (LORENZO ROMERO). PT IN TRANSPORT
--- NOTE | 2020-03-21 12:26 | NUR ---
REPORT CALLED TO LORENZO ROMERO AT [facility]
--- NOTE | 2020-03-21 12:56 | NUR ---
Patient was received at [facility] but received call back from Nurse aniceto montesinos for OUT-OF -Hospital DNR. I called Kayleigh Hidalgo, who is the decision maker for patient and got her verbal consent for DNR. Signed order by this RN and Dr Hernandez. Faxed to & and did get confirmation of receipt, plus phone call made to verbally tell them to look on the fax machine for the order.
--- NOTE | 2020-03-21 18:49 | Discharge Summary ---
Discharge Summary Hospital Course Problems/Dx: (1) Acute respiratory failure due to COVID-19 Status: Acute (2) Septic shock Status: Acute (3) Multifocal pneumonia Status: Acute (4) Lactic acidosis Status: Acute (5) Acute kidney injury superimposed on chronic kidney disease Status: Acute (6) Hypernatremia Status: Acute (7) Advanced dementia Status: Chronic (8) Poor prognosis Status: Acute (9) Comfort measures only status Status: Acute Hospital Course Date of Admission: Mar 17, 2020 at 14:14 Admission Diagnosis : Septic shock due to pneumonia, Acute respiratory failure due to COVID-19, Acute renal failure Family Physician/Provider: Neal Fowler DO Date of Discharge: 03/21/20 Discharge Diagnosis: Septic shock due to pneumonia, Acute respiratory failure due to COVID-19, Acute renal failure Hospital Course: Pankaj Lees is a 64 year old male with advanced dementia who was admitted with septic shock due to pneumonia, COVID-19, and acute renal failure. He quickly decompensated and was nearing the need for intubation. His emergency contact was called, his lxqpfn-dt-odk, Kayleigh Hidalgo, and he was transitioned to comfort measures only status. He remained unresponsive, but stable, over the following days and was transferred back to [facility] [place] on comfort care only status. Labs and Pending Lab Test: Laboratory Tests 03/21/20 06:16: White Blood Count 8.5, Red Blood Count 4.25L, Hemoglobin 12.0L, Hematocrit 45, Mean Corpuscular Volume 105H, Mean Corpuscular Hemoglobin 28, Mean Corpuscular Hemoglobin Concent 27L, Red Cell Distribution Width 15.2H, Platelet Count 119L, Mean Platelet Volume 13.6H, Immature Granulocyte % (Auto) 1, Neutrophils (%) (Auto) 90H, Lymphocytes (%) (Auto) 7L, Monocytes (%) (Auto) 3, Eosinophils (%) (Auto) 0, Basophils (%) (Auto) 0, Neutrophils # (Auto) 7.7, Lymphocytes # (Auto) 0.6L, Monocytes # (Auto) 0.2, Eosinophils # (Auto) 0.0, Basophils # (Auto) 0.0, Immature Granulocyte # (Auto) 0.1, Sodium Level 187*H, Potassium Level 5.1H, Chloride Level 143H, Carbon Dioxide Level 20L, Anion Gap 24H, Blood Urea Nitrogen 197*H, Creatinine 5.24H, Estimat Glomerular Filtration Rate 11, BUN/Creatinine Ratio 38, Glucose Level 235H, Calcium Level 8.9 Microbiology 03/17/20 Urine Culture - Final, Complete Escherichia coli Gram Pos Mixed Bacterial Fior 03/17/20 Blood Culture - Preliminary, Resulted Staph, Coag Neg (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 20mg/ml (Morphine Sulfate) 100 Mg/5 Ml Solution 10 Mg PO Q2H PRN 7 Days Assessment/Pt Instructions Patient discharged on comfort care Discharge Planning: <30 minutes discharge planning Discharge Instructions Discharge Diet: No Restrictions Activity as Tolerated: Yes Discharge Physical Examination Vital Signs Vital Signs Date Time Temp Pulse Resp B/P (MAP) Pulse Ox O2 Delivery O2 Flow Rate FiO2 03/21/20 12:20 38.9 131 41 112/78 74 Room Air 10.00 General Appearance: No Apparent Distress, Chronically ill Respiratory: Respiratory Distress (intermittently tachypneic and apneic), Rhonci Cardiovascular: Tachycardia Gastrointestinal: Soft Extremity: Normal Inspection, No Pedal Edema Skin: Normal Color, Warm/Dry Neurologic/Psychiatric: Other (obtunded, unresponsive) Allergies: Coded Allergies: Penicillins (Verified Allergy, Unknown, 06/17/14) Copy Copies To 1: NEAL FOWLER DO Discharge Summary Date of Admission Mar 17, 2020 at 14:14 Date of Discharge Mar 21, 2020 at 12:20 Discharge Date: Mar 21, 2020 Discharge Time: 12:20 Admission Diagnosis Septic shock due to pneumonia Comfort Measures/ End of Life Care: Comfort Measures Discharge Diagnosis Septic shock Bilateral pneumonia Acute respiratory failure due to COVID-19 Acute kidney injury superimposed on chronic kidney disease (1) Acute respiratory failure due to COVID-19 Status: Acute (2) Septic shock Status: Acute (3) Multifocal pneumonia Status: Acute (4) Lactic acidosis Status: Acute (5) Acute kidney injury superimposed on chronic kidney disease Status: Acute (6) Hypernatremia Status: Acute (7) Advanced dementia Status: Chronic (8) Poor prognosis Status: Acute (9) Comfort measures only status Status: Acute DEMETRIA MARS MD 27, 2020 18:42
== END 2020-03-21 12:20 | DRG 871 ==
LOC: EDUNIT# 11:06 → ER 11:07 → ICU 14:14 → 4TH 03-18 00:03
PROVIDERS: ADMIT Internal Medicine; ATTEND Internal Medicine
DX: A41.89 Other specified sepsis (principal); R65.21 Severe sepsis with septic shock; U07.1 COVID-19; J12.89 Other viral pneumonia; J96.00 Acute respiratory failure, unspecified whether with hypoxia or hypercapnia; N17.9 Acute kidney failure, unspecified; E87.1 Hypo-osmolality and hyponatremia; E87.2 Acidosis; N39.0 Urinary tract infection, site not specified; F03.90 Unspecified dementia, unspecified severity, without behavioral disturbance, psychotic disturbance, mood disturbance, and anxiety; Z51.5 Encounter for palliative care; N18.9 Chronic kidney disease, unspecified; I25.2 Old myocardial infarction; E78.00 Pure hypercholesterolemia, unspecified; Z86.73 Personal history of transient ischemic attack (TIA), and cerebral infarction without residual deficits; K21.9 Gastro-esophageal reflux disease without esophagitis; M19.90 Unspecified osteoarthritis, unspecified site; F41.9 Anxiety disorder, unspecified; F32.9 Major depressive disorder, single episode, unspecified
CPT/HCPCS: 36415; 51702; 71045; 80048; 80053; 81000; 82553; 82805; 83605; 84145; 85007; 85025; 85027; 85379; 85610; 85730; 87040; 87077; 87088; 87186; 94660